=== PATIENT | female | born 2005 | race Two or more races ===

== ENCOUNTER 2024-04-19 11:02 | Inpatient (IN) | payer OTHER, MEDICAID ==
[~2024-04-19] VITALS: Ht 165.1 cm; Wt 79.9 kg
[2024-04-19 11:42] VITALS: PULSE 81; RESP 13; O2SAT 99
--- NOTE | 2024-04-19 11:47 | ED.PDOC ---
History of Present Illness HPI Comments 18F presents to the Er w/ no prior Hx associated to the c/c of a dizziness. Pt reports on feeling lightheadedness for 5 months, as well as left arm and left leg which drag as well as slurred speech for 5 months as well. Pt states that the pain came on suddenly, as well as having a syncopal episode in the bath yesterday. Pt complains of upper back pain due from the fall as well as recurring falls and being off balance. Social Hx of Marijuana use, but denies tobacco and alcohol use. Family Hx of MS and Brain Tumor. Denies chills. fever, N/V/D, SOB, CP or other associated symptom's, modifiers, or recent injuries or sick contact at this time. Chief Complaint: Dizziness Time Seen by MD: 11:30 Primary Care Provider: ANNA Reviewed Notes: Nurses Notes, Medications, Allergies Allergies: Coded Allergies: NO KNOWN ALLERGIES (Unverified , 04/19/24) Information Source: Patient Mode of Arrival: Wheelchair Severity: Moderate Timing: Months Duration: Since onset Prehospital treatment: None Past Medical History PAST MEDICAL HISTORY: Denies Surgical History: Denies all surgeries EXCAVATOR OPERATOR History: No Pertinent EXCAVATOR OPERATOR History Family History Family History: Reviewed,noncontributory to illness Family History (Other): Family Hx of MS and Brain Tumor Social History Smoker: Non-Smoker Alcohol: Denies ETOH Use Drugs: Marijuana Lives In: Home Constitutional: denies: chills, diaphoresis, fatigue, fever, malaise, sweats, weakness, others EENTM: denies: blurred vision, double vision, ear bleeding, ear discharge, ear drainage, ear pain, ear ringing, eye pain, eye redness, hearing loss, mouth pain, mouth swelling, nasal discharge, nose bleeding, nose congestion, nose pain, photophobia, tearing, throat pain, throat swelling, voice changes, others Respiratory: denies: cough, hemoptysis, orthopnea, SOB at rest, shortness of breath, SOB with excertion, stridor, wheezing, others Cardiovascular: denies: chest pain, dizzy spells, diaphoresis, Dyspnea on exertion, edema, irregular heart beat, left arm pain, lightheadedness, palpitations, PND, syncope, others Gastrointestinal: denies: abdomen distended, abdominal pain, blood streaked bowels, constipated, diarrhea, dysphagia, difficulty swallowing, hematemesis, melena, nausea, poor appetite, poor fluid intake, rectal bleeding, rectal pain, vomiting, others Genitourinary: denies: abnormal vagina bleeding, burning, dyspareunia, dysuria, flank pain, frequency, hematuria, incontinence, pain, , vagina discharge, urgency, others Neurological: reports: dizziness, left sided weakness, speech problems; denies: fainting, headache, left sided numbness, numbness, paresthesia, pre-existing deficit, right sided numbness, right sided weakness, seizure, tingling, tremors, weakness, others Musculoskeletal: denies: back pain, gout, joint pain, joint swelling, muscle pain, muscle stiffness, neck pain, others Integumetry: denies: bruises, change in color, change in hair/nails, dryness, laceration, lesions, lumps, rash, wounds, others Allergic/Immunocompromised: denies: Difficulty Healing, Frequent Infections, Hives, Itching, others Hematologic/Lymphatic: denies: anemia, blood clots, easy bleeding, easy bruising, swollen glands, others Endocrine: denies: excessive hunger, excessive sweating, excessive thirst, excessive urination, flushing, intolerance to cold, intolerance to heat, unex plained weight gain, unexplained weight loss, others Psychiatric: denies: anxiety, bipolar disorder, depression, hopeless, panic disorder, schizophrenia, sleepless, suicidal, others All Other Systems: Reviewed and Negative Physical Exam Exam Comments Right eye does not track, midline laterally and Speech is Stuttered Right arm is 5/5 and left arm is 4/5 General Appearance: No Apparent Distress, Normal HEENT: Normal ENT Inspection, Pharynx Normal, TMs Normal Neck: Full Range of Motion, Non-Tender, Normal, Normal Inspection Respiratory: Chest Non-Tender, Lungs Clear, No Accessory Muscle Use, No R espiratory Distress, Normal Breath Sounds Cardiovascular: No Edema, No JVD, No Murmur, No Gallop, Normal Peripheral Pulses, Regular Rate/Rhythm Breast Exam: Deferred Gastrointestinal: No Organomegaly, Non Tender, No Pulsatile Mass, Normal Bowel Sounds, Soft Genitalia: Deferred Pelvic: Deferred Rectal: Deferred Extremities: No calf tenderness, Normal capillary refill, Normal inspection, Normal range of motion, Non-tender, No pedal edema Musculoskeletal : Apperance: Normal Neurologic: Alert, dairy quality assurance officer II-XII nml as Tested, No Motor Deficits, Normal Affect, Normal Mood, No Sensory Deficits Cerebellar Function: Normal Reflexes: Normal Skin: Dry, Normal Color, Warm Lymphatic: No Adenopathy Was a procedure done? Was a procedure done?: No Differential Dx Considerations may include: brain mass, cva, intracranial bleed. demyelinating disease X-Ray, Labs, Meds, VS Vital Signs Date Time Temp Pulse Resp B/P (MAP) Pulse Ox O2 Delivery O2 Flow Rate FiO2 04/19/24 12:00 95 04/19/24 12:00 98.4 82 13 118/71 (87) 99 98.4 04/19/24 11:42 81 13 99 Room Air* 0 21 04/19/24 11:27 99 04/19/24 11:15 98.4 103 18 138/81 (100) 98 Lab Test 04/19/24 11:46 Range/Units White Blood Count 10.2 4.4-10.8 10^3/uL Red Blood Count 5.09 4.0-5.20 10^6/uL Hemoglobin 14.5 12.2-16.2 g/dL Hematocrit 42.8 36.0-46.0 % Mean Corpuscular Volume 84.2 80.0-100.0 fL Mean Corpuscular Hemoglobin 28.4 28.0-32.0 pg Mean Corpuscular Hemoglobin Concent 33.7 32.0-36.0 g/dL Red Cell Distribution Width 15.6 H 11.8-14.3 % Platelet Count 401 140-450 10^3/uL Mean Platelet Volume 6.8 L 6.9-10.8 fL Neutrophils (%) (Auto) 70.6 37.0-80.0 % Lymphocytes (%) (Auto) 19.8 10.0-50.0 % Monocytes (%) (Auto) 7.1 0.0-12.0 % Eosinophils (%) (Auto) 1.8 0.0-7.0 % Basophils (%) (Auto) 0.7 0.0-2.0 % Neutrophils # (Auto) 7.2 1.6-8.6 10 ^3/uL Lymphocytes # (Auto) 2.0 0.4-5.4 10 ^3/uL Monocytes # (Auto) 0.7 0-1.3 10 ^3/uL Eosinophils # (Auto) 0.2 0-0.8 10 ^3/uL Basophils # (Auto) 0.1 0-0.2 10 ^3/uL Nucleated Red Blood Cells 0.0 % Sodium Level 140 136-145 mmol/L Potassium Level 3.7 3.5-5.1 mmol/L Chloride Level 107 98-107 mmol/L Carbon Dioxide Level 23 20-31 mmol/L Anion Gap 10 5-15 Blood Urea Nitrogen 8 L 9-23 mg/dL Creatinine 0.64 0.550-1.02 mg/dL Glomerular Filtration Rate Calc 130 >90 mL/min BUN/Creatinine Ratio 12.5 10.0-20.0 Serum Glucose 104 74-106 mg/dL Calcium Level 10.1 8.7-10.4 mg/dL Total Bilirubin 0.5 0.2-1.0 mg/dL Aspartate Amino Transferase (AST) < 8 L 13-40 U/L Alanine Aminotransferase (ALT) 12 7-40 U/L Alkaline Phosphatase 80 46-116 U/L Total Protein 7.4 5.7-8.2 g/dL Albumin 4.7 3.2-4.8 g/dL Beta HCG, Quantitative 1.5 1.5-4.2 mIU/mL Time of 1ST Reevaluation: 12:00 Reevaluation 1ST: Unchanged Patient Education/Counseling: Diagnosis, Treatment, Prognosis Family Education/Counseling: Diagnosis, Treatment, Prognosis Additional Information - The following tests were ordered, and results were reviewed by me: Labs, Urine, EKG, CBC, CMC - Additional information was gathered from interviewing the following independent Historian: Family - I reviewed and agreed with the following test results read by other provider: (X-ray, CT, US) - I discussed treatments and results with medical personnel and: (consultants, family) Departure 1 Departure Time of Disposition: 13:55 Impression: Primary Impression: Left-sided weakness Additional Impressions: Slurred speech Demyelinating changes in brain Disposition: ADMITTED INPATIENT Admit to: Tele Condition: Serious Critical Care Note Critical Care Time?: Yes (55 min-critical care time only) Critical care comment: due to the likelihood of patients condition suddenly deteriorating, the care requires my highest level of attention, readiness to intervene. my critical care include assessing and reassessing of patient's condition, response to treatments, ordering the appropriate tests, reviewing the results, ordering of treatments, discussing the care with medical personnel and consultants, and formulating a treatment plan, as well a reviewing various medical records. this include at least 50% face-face interaction, and does not include any procedures Stability Stability form required: No I personally scribed for CARLA HEBERT MD ([email or web address]) on 04/19/24 at 11:47. Electronically submitted by Daniel Spencer ([email or web address]). CARLA HEBERT MD Apr 19, 2024 11:47
[2024-04-19 12:01] LABS: Basophils # (auto) 0.1 10 ^3/uL (0-0.2); Basophils % (auto) 0.7 % (0.0-2.0); Eosinophils # (auto) 0.2 10 ^3/uL (0-0.8); Eosinophils % (auto) 1.8 % (0.0-7.0); Hematocrit 42.8 % (36.0-46.0); Hemoglobin 14.5 g/dL (12.2-16.2); Lymphocytes % (auto) 19.8 % (10.0-50.0); Mean Corpuscular Hemoglobin 28.4 pg (28.0-32.0); Mean Corpuscular Hgb Conc. 33.7 g/dL (32.0-36.0); Mean Corpuscular Volume 84.2 fL (80.0-100.0); Monocytes # (auto) 0.7 10 ^3/uL (0-1.3); Monocytes % (auto) 7.1 % (0.0-12.0); Neutrophils # (auto) 7.2 10 ^3/uL (1.6-8.6); Neutrophils % (auto) 70.6 % (37.0-80.0); Platelet Count (auto) 401 10^3/uL (140-450); Red Blood Cells 5.09 10^6/uL (4.0-5.20); Red Cell Distribution Width 15.6 % (11.8-14.3); White Blood Cell 10.2 10^3/uL (4.4-10.8)
[2024-04-19 12:18] LABS: Alanine Aminotransferase 12 U/L (7-40); Albumin 4.7 g/dL (3.2-4.8); Alkaline Phosphatase 80 U/L (46-116); Anion Gap 10 (5-15); BUN/Creatinine Ratio 12.5 (10.0-20.0); Bilirubin, Total 0.5 mg/dL (0.2-1.0); Calcium 10.1 mg/dL (8.7-10.4); Carbon Dioxide 23 mmol/L (20-31); Chloride 107 mmol/L (98-107); Glucose 104 mg/dL (74-106); Potassium 3.7 mmol/L (3.5-5.1); Sodium 140 mmol/L (136-145); Total Protein 7.4 g/dL (5.7-8.2)
[2024-04-19 12:21] LABS: Aspartate Aminotransferase < 8 U/L (13-40); Blood Urea Nitrogen 8 mg/dL (9-23)
--- NOTE | 2024-04-19 13:10 | DVH ---
CLINICAL INFORMATION: 18 years old, Female; lef sided weakness. TECHNIQUE: Axial imaging was obtained through the brain without contrast. Coronal and sagittal refor matted images were obtained, reviewed, and stored. Images were reviewed in brain and bone windows. A ll CT scans at this medical facility are performed using dose modulation techniques as appropriate to a performed exam including the following: Automated exposure control was utilized; adjustment of the MA and/or KV according to patient size; and use of iterative reconstruction technique. CTDIvol = 54.46 mGy DLP = 763.17 mGy-cm COMPARISON: None FINDINGS: No acute intracranial hemorrhage. Multifocal small ovoid lucencies are seen in both cerebr al hemispheres. The ventricles and sulci are within normal limits in size for age. Basal cisterns ar e patent. The calvarium is unremarkable. Paranasal sinuses and mastoid air cells are clear. IMPRESSION: 1. No acute intracranial hemorrhage. 2. Multifocal ovoid lucencies are seen in bilateral cerebral hemispheres, of uncertain etiology. Diff erential considerations would include demyelinating disease or infectious/ inflammatory etiology. Co rrelate with clinical findings. MRI without and with contrast recommended.
--- NOTE | 2024-04-19 13:26 | DVH ---
EXAM: CT CERVICAL WITHOUT CONTRAST INDICATION: left sided weakness EXAM DATE: 04/19/2024 12:39 PM COMPARISON: CT HEAD WITHOUT CONTRAST on DOS: 04/19/24 TECHNIQUE: Multiple axial CT images of the cervical spine were obtained using bone algorithm. Axial a nd coronal reformatting was done. Bone and soft tissue windows were reviewed. Radiation Dose Information: CT Dose: CTDI volume is 19.13 mGy. Dose-length product is 428.11 mGy*cm FINDINGS: 7 [id number] cervical type vertebra. Reversal of the cervical lordosis. No acute cervical spine fracture is identified. The vertebral body heights are intact. No suspicious osseous lesions are kt ntified. Congenital nonfusion of posterior C1 arch. No significant degenerative changes are identified. There is no prevertebral soft tissue swelling. IMPRESSION: No evidence of acute cervical spine fracture or traumatic malalignment. All CT scans at this medical facility are performed using dose modulation techniques as appropriate t o a performed exam including the following: Automated exposure control was utilized; adjustment of th e MA and/or KV according to patient size; and use of iterative reconstruction technique.
--- NOTE | 2024-04-19 13:29 | DVH ---
CT OF THE THORACIC SPINE WITHOUT CONTRAST HISTORY: left sided weakness COMPARISON: None TECHNIQUE: Axial images through the thoracic spine were obtained without contrast. Coronal and sagitt al reformats were obtained. One or more of the following radiation dose reduction techniques were use d for this examination: automated exposure control, adjustment of the mA and/or kV according to patie nt size, use of iterative reconstruction technique. FINDINGS: Rib-bearing thoracic type vertebra. Mild dextroconvex curvature of the lumbar spine. Vertebral body heights are maintained. Motion artifact limits evaluation of the proximal ribs and sternum. No evide nce of acute traumatic fractures or spondylolisthesis of the thoracic spine. Bilateral dependent atelectasis. IMPRESSION: No evidence of acute traumatic fractures or spondylolisthesis.
[2024-04-19 14:05] LABS: Urine Bacteria None Seen /hpf (None Seen)
[2024-04-19 14:26] LABS: Urine Blood 2+ /uL (Negative); Urine Clarity Clear (Clear); Urine Color Light-Yellow (Yellow); Urine Mucus FEW (None Seen); Urine Protein, UAD Negative (Negative); Urine Specific Gravity 1.017 (1.001-1.035); Urine Urobilinogen Normal (Negative); Urine WBC 1 /hpf (0 - 5); Urine pH 6.5 (5.0-9.0)
--- NOTE | 2024-04-19 15:11 | DVHHP2 ---
Admitting Diagnosis: Dizziness History of Present Illness Patient is a 18 Year old Female with complaining of dizziness. Patient reports lightheadedness for 5 months. Patient states that her left arm and left leg drag as well as slurred speech for 5 months. Patient stated that she experiences syncope yesterday, as well as upper back pain from fall. Patient has a history of Marijuana use, but denies EtOH and tobacco. Patient denies chills, fever, N/V/D, SOB, and CP. While in the emergency department the patient was evaluated by the provider, Labs, vital signs, and imagining monitored. Patient will be admitted for further evaluation and treatment. I discussed admission with the patient/family and is in agreement to treatment plan. Allergies: Coded Allergies: NO KNOWN ALLERGIES (Unverified , 04/19/24) Review of Systems Constitutional: denies chills, denies fever, denies malaise Eyes: denies eye pain, denies vision change ENT: denies ear pain, denies headache, denies nasal congestion, denies painful swallowing, denies voice change Cardiovascular: denies chest pain, denies edema, denies orthopnea, denies palpitations, denies paroxysmal nocturnal dyspnea Respiratory: denies cough, denies shortness of breath Gastrointestinal: denies constipation, denies diarrhea, denies nausea, denies vomiting Genitourinary: denies dysuria, denies frequent urination, denies urethral discharge Musculoskeletal: denies back pain, denies joint pain, denies muscle pain Skin: denies bruising, denies itching, denies rash Neurological: denies focal weakness, denies headache, denies sensory changes Psychiatric: denies anxiety, denies depression Endocrine: denies polydipsia, denies polyuria Hematologic/Lymphatic: denies easy bleeding, denies easy bruising, denies enlarged lymph nodes Allergic/Immunologic: denies allergy, denies hives Vital Signs Vital Signs Date Time Temp Pulse Resp B/P (MAP) Pulse Ox O2 Delivery O2 Flow Rate FiO2 04/20/24 16:54 97.9 81 14 110/60 (77) 98 97.9 04/20/24 08:15 Room Air* 0 21 Physical Exam General Appearance: alert, no distress HEENT: EOMI, PERRLA, normal external inspect of ears, no icterus, no nasal drainage Neck: no carotid bruit, no jugular venous distention (JVD), no lymphadenopathy Chest: normal thorax Respiratory: clear to auscultation, normal air movement Cardiovascular: regular rate and rhythm, no diastolic murmur, no jugular venous distention (JVD), no rub, no systolic murmur Abdominal: soft, no hepatomegaly, no mass, no splenomegaly, no tenderness Genitourinary: grossly normal external Musculoskeletal: no joint tenderness, no swelling Extremities: normal pulses, no calf tenderness, no clubbing, no cyanosis, no edema Skin: no bruising, no jaundice, no rash Neurological: alert, No focal deficit Results Labs Test 04/20/24 05:47 04/19/24 12:35 04/19/24 11:46 Range/Units White Blood Count 6.7 # 4.4-10.8 10^3/uL Red Blood Count 4.90 4.0-5.20 10^6/uL Hemoglobin 14.0 12.2-16.2 g/dL Hematocrit 41.6 36.0-46.0 % Mean Corpuscular Volume 84.9 80.0-100.0 fL Mean Corpuscular Hemoglobin 28.6 28.0-32.0 pg Mean Corpuscular Hemoglobin Concent 33.7 32.0-36.0 g/dL Red Cell Distribution Width 15.8 H 11.8-14.3 % Platelet Count 345 140-450 10^3/uL Mean Platelet Volume 6.8 L 6.9-10.8 fL Neutrophils (%) (Auto) 61.7 37.0-80.0 % Lymphocytes (%) (Auto) 24.4 10.0-50.0 % Monocytes (%) (Auto) 8.1 0.0-12.0 % Eosinophils (%) (Auto) 5.1 0.0-7.0 % Basophils (%) (Auto) 0.7 0.0-2.0 % Neutrophils # (Auto) 4.1 1.6-8.6 10 ^3/uL Lymphocytes # (Auto) 1.6 0.4-5.4 10 ^3/uL Monocytes # (Auto) 0.5 0-1.3 10 ^3/uL Eosinophils # (Auto) 0.3 0-0.8 10 ^3/uL Basophils # (Auto) 0 0-0.2 10 ^3/uL Nucleated Red Blood Cells 0.0 % Erythrocyte Sedimentation Rate 7 0-20 mm/hr Sodium Level 140 136-145 mmol/L Potassium Level 4.1 3.5-5.1 mmol/L Chloride Level 108 H 98-107 mmol/L Carbon Dioxide Level 23 20-31 mmol/L Anion Gap 9 5-15 Blood Urea Nitrogen 9 9-23 mg/dL Creatinine 0.61 0.550-1.02 mg/dL Glomerular Filtration Rate Calc 132 >90 mL/min BUN/Creatinine Ratio 14.8 10.0-20.0 Serum Glucose 100 74-106 mg/dL Hemoglobin A1c 5.4 <5.7 % A1C Calcium Level 9.8 8.7-10.4 mg/dL Total Bilirubin 0.5 0.2-1.0 mg/dL Aspartate Amino Transferase (AST) < 8 L 13-40 U/L Alanine Aminotransferase (ALT) 10 7-40 U/L Alkaline Phosphatase 74 46-116 U/L Total Protein 6.8 5.7-8.2 g/dL Albumin 4.2 3.2-4.8 g/dL Thyroid Stimulating Hormone (TSH) 1.20 0.55-4.78 uIU/mL Urine Color Light-yellow Yellow Urine Clarity Clear Clear Urine pH 6.5 5.0-9.0 Urine Specific [place] 1.017 1.001-1.035 Urine Protein Negative Negative Urine Ketones Negative Negative Urine Blood 2+ H Negative /uL Urine Nitrite Negative Negative Urine Bilirubin Negative Negative Urine Urobilinogen Normal Negative mg/dL Urine Leukocyte Esterase Negative Negative /uL Urine RBC <1 0 - 4 /hpf Urine WBC 1 0 - 5 /hpf Urine Squamous Epithelial Cells Few <5 /hpf Urine Bacteria None seen None Seen /hpf Urine Mucus Few None Seen Urine Glucose Normal Normal mg/dL Beta HCG, Quantitative 1.5 1.5-4.2 mIU/mL Admitting Diagnosis: 1. Recurrent Falls Medication, monitoring 2. demyelination in brain Neurology consult, Spinal tap, MRI C/T/L Spine 3. Left Sided-weakness Medication, Monitoring 4. Obesity Diet Education Plan discussed with: Patient, Other LIDAMEON Erin RIVERA Apr 19, 2024 15:11
[2024-04-19] MEDS ORDERED: ONDANSETRON HCL 4 MG/2 ML VIAL IV PRN (15:15)
[2024-04-19] MEDS: SODIUM CHLORIDE 0.9% 1,000 ML IV SCH (16:00)
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
[2024-04-19 17:00] VITALS: BP 123/63; PULSE 76; RESP 18; TEMP 97.9; O2SAT 96
[2024-04-19 18:25] VITALS: O2SAT 97
[2024-04-19 21:00] VITALS: BP 122/69; PULSE 77; RESP 18; TEMP 97.9; O2SAT 97
[2024-04-20 01:00] VITALS: BP 120/69; PULSE 61; RESP 18; TEMP 98.8; O2SAT 97
[2024-04-20 05:00] VITALS: BP 107/60; PULSE 75; RESP 18; TEMP 97.7; O2SAT 94
[2024-04-20 06:07] LABS: Basophils # (auto) 0 10 ^3/uL (0-0.2); Basophils % (auto) 0.7 % (0.0-2.0); Eosinophils # (auto) 0.3 10 ^3/uL (0-0.8); Eosinophils % (auto) 5.1 % (0.0-7.0); Hematocrit 41.6 % (36.0-46.0); Lymphocytes # (auto) 1.6 10 ^3/uL (0.4-5.4); Lymphocytes % (auto) 24.4 % (10.0-50.0); Mean Corpuscular Hemoglobin 28.6 pg (28.0-32.0); Mean Corpuscular Hgb Conc. 33.7 g/dL (32.0-36.0); Mean Corpuscular Volume 84.9 fL (80.0-100.0); Monocytes # (auto) 0.5 10 ^3/uL (0-1.3); Monocytes % (auto) 8.1 % (0.0-12.0); Neutrophils # (auto) 4.1 10 ^3/uL (1.6-8.6); Neutrophils % (auto) 61.7 % (37.0-80.0); Platelet Count (auto) 345 10^3/uL (140-450); Red Cell Distribution Width 15.8 % (11.8-14.3); White Blood Cell 6.7 10^3/uL (4.4-10.8)
[2024-04-20 06:28] LABS: Alanine Aminotransferase 10 U/L (7-40); Albumin 4.2 g/dL (3.2-4.8); Alkaline Phosphatase 74 U/L (46-116); Anion Gap 9 (5-15); Aspartate Aminotransferase < 8 U/L (13-40); BUN/Creatinine Ratio 14.8 (10.0-20.0); Blood Urea Nitrogen 9 mg/dL (9-23); Calcium 9.8 mg/dL (8.7-10.4); Carbon Dioxide 23 mmol/L (20-31); Chloride 108 mmol/L (98-107); Glucose 100 mg/dL (74-106); Potassium 4.1 mmol/L (3.5-5.1); Sodium 140 mmol/L (136-145)
[2024-04-20 06:29] LABS: Bilirubin, Total 0.5 mg/dL (0.2-1.0); Total Protein 6.8 g/dL (5.7-8.2)
[2024-04-20 08:46] VITALS: BP 105/61; PULSE 76; RESP 16; TEMP 97.7; O2SAT 97
--- NOTE | 2024-04-20 09:16 | DVHPN2 ---
Progress Note - Dictate Date Seen: Apr 20, 2024 Medical Necessity Reason Pt with a Central, PICC or Fol: No vital signs Vital Sign Date Time Temp Pulse Resp B/P (MAP) Pulse Ox O2 Delivery O2 Flow Rate FiO2 04/20/24 08:46 97.7 76 16 105/61 (76) 97 97.7 04/20/24 08:15 Room Air* 0 21 Total Intake and Output 04/19/24 04/19/24 04/20/24 15:00 23:00 07:00 Intake Total 120 ml 500 ml Output Total 0 ml 350 ml Balance 120 ml 150 ml medications Current Medications Medications Dose Ordered Sig/Dandre Route Start Time Stop Time Status Last Admin Dose Admin Sodium Chloride 1,000 ml @ 60 mls/hr [id number] IV 04/19/24 15:15 04/19/24 16:00 60 MLS/HR Acetaminophen/ Hydrocodone Bitart 1 tab Q4HP PRN PO 04/19/24 15:15 Ondansetron HCl 4 mg Q4HP PRN IV 04/19/24 15:15 Docusate Sodium 100 mg BIDPRN PRN PO 04/19/24 15:15 Acetaminophen 650 mg Q6HP PRN PO 04/19/24 15:15 objective General Appearance: alert, no distress HEENT: EOMI, PERRLA, normal external inspect of ears, no icterus, no nasal drainage Neck: no carotid bruit, no jugular venous distention (JVD), no lymphadenopathy Chest: normal thorax Respiratory: clear to auscultation, normal air movement Cardiovascular: regular rate and rhythm, no diastolic murmur, no jugular venous distention (JVD), no rub, no systolic murmur Abdominal: soft, no hepatomegaly, no mass, no splenomegaly, no tenderness Genitourinary: grossly normal external Musculoskeletal: no joint tenderness, no swelling Extremities: normal pulses, no calf tenderness, no clubbing, no cyanosis, no edema Skin: no bruising, no jaundice, no rash Neurological: alert, No focal deficit laboratory and microbiology Laboratory Tests 04/20/24 05:47 Test 04/20/24 05:47 Range/Units Serum Glucose 100 74-106 mg/dL Problem List 1. Recurrent Falls Medication, monitoring 2. demyelination in brain Neurology consult, Spinal tap, MRI C/T/L Spine 3. Left Sided-weakness Medication, Monitoring 4. Obesity Diet Education Assessment/Plan Subjective: Patient is awake and alert. Objective: I spoke with the patient and her significant other at the bedside. Patient was admitted for repeated falls. Patient has a history of familial MS on both her mothers and fathers side. CT imaging of the brain shows possible demyelination. Plan: Obtain urine drug screen, MRI with contrast of the brain, MRI of C-spine, T- spine, and L-spine with and without contrast. Radiologist consult for spinal tap. Re-consult neurology after spinal tap to determine possible medication initiation. Plan discussed with: Patient, Other DAMEON JEFFERSON NP Apr 20, 2024 09:16
[2024-04-20 10:23] LABS: Erythrocyte Sedimentation Rate 7 mm/hr (0-20)
--- NOTE | 2024-04-20 13:56 | DVH ---
MRI LUMBAR SPINE WO W CONTRST INDICATION: r/o ms EXAM DATE: 04/20/2024 11:51 AM COMPARISON: None Technique:: Using a 1.5 Elizabeth scanner, multisequence multiplanar imaging of the lumbar spine was obta ined with and without contrast. FINDINGS: 6 laq-ftl-rbeuhvw lumbar-type vertebrae . For the purpose of the study, the 1st jmr-blv-bkohfgy lumba r-type vertebra will be considered L1 with the last orx-vqe-russloe lumbar-type vertebra considered a t lumbarized S1. Mild straightening of the lumbar lordosis. Vertebral body heights are maintained. No worrisome bone marrow signal. No abnormal areas of enhancement on the postcontrast images. The conus terminates at the level of L1-L2 with no abnormal cord signal. L1-L2: No significant spinal canal or neural foramina stenosis. L2-L3: No significant spinal canal or neural foramina stenosis. L3-L4: No significant spinal canal or neural foramina stenosis. L4-L5: Mild prominence of the annular ligament without significant spinal canal or neural foramina st enosis. L5-S1: Posterior disc bulge without significant spinal canal or neural foramina stenosis. The paraspinal muscles unremarkable. IMPRESSION: No significant spinal canal or neural foramina stenosis.
--- NOTE | 2024-04-20 14:12 | DVH ---
EXAM: MRI BRAIN HEAD WO W CONTRAST CLINICAL HISTORY: R/O MS COMPARISON: CT HEAD WITHOUT CONTRAST on DOS: 04/19/24 TECHNIQUE: Multiplanar, multisequence magnetic resonance imaging of the brain was performed without intravenous contrast. FINDINGS: Artifact from possible dental hardware limits evaluation of the frontal CT of the brain with nondiagn ostic blood sensitive sequence and diffusion weighted imaging. There is normal brain volume and formation of the visualized brain. There are innumerable /extensive periventricular, deep and subcortical white matter supratentorial T2 /FLAIR hyperintense foci with involvement of the basal ganglia, thalamus and corpus callosum, some of which are in perivenular distribution. Additional foci are noted involving the brainstem and cerebel lum. There are no acute hemorrhages in the visualized T1 and T2 images. No masses, mass effect, midline sh ift, or herniation of the visualized brain parenchyma. No intra-axial or extra-axial fluid collection s. No evidence of hydrocephalus. The basal cisterns are patent. Vascular flow voids are maintained. The pituitary gland, sella parasellar regions are unremarkable. The cerebellar tonsils are normal pos ition. Limited evaluation of the orbits and globes due to artifact. Limited evaluation of the paranasal sinu ses. The bilateral mastoids are clear. No worrisome lesions of the visualized calvarium. On the postcontrast images, a few T2/FLAIR hyperintense foci demonstrates complete enhancement with m ultiple lesions demonstrating peripheral enhancement most of which are incomplete. IMPRESSION: Study is significantly limited by artifact from possible dental hardware. There are innumerable supratentorial, infratentorial and brainstem T2/FLAIR hyperintense foci with fe w demonstrating complete enhancement and multiple demonstrating incomplete peripheral enhancement sug gestive of active demyelinating process. Recommend clinical correlation.
--- NOTE | 2024-04-20 14:22 | DVH ---
Procedure: MRI THORACIC SPINE WITHOUT Study Date and Requested Time: 04/20/2024 11:30 AM History: R/O MS Comparison: CT THORACIC SPINE WO CONTRAS on DOS: 04/19/24 Technique: Multiple sequential thoracic spine available for evaluation. Findings: 12 rib-bearing thoracic type vertebra. Mild straightening of the thoracic kyphosis. Vertebral body h eights are maintained. No worrisome bone marrow signal. There is T2 hyperintense cord signal at the l evel of T1 involving the central and posterior cord . There is also abnormal left-sided cord signal at the level of T2-T3 extending to the level of the upp er vertebral body of T3. There are also multiple levels of short segmental abnormal cord signal exte nding from T4 to the conus, most prominent at the level of T8 and T10 with near-complete involvement of the cord at T8 and T10. No significant spinal canal or neural foramina stenosis. The paraspinal muscles unremarkable. Impression: Extensive short segmental T2/FLAIR hyperintense foci involving the thoracic cord most consistent with demyelinating process. No significant spinal canal or neural foramina stenosis.
--- NOTE | 2024-04-20 14:38 | DVH ---
CLINICAL INFORMATION: 18 years old, Female; rule out multiple sclerosis. TECHNIQUE: Multisequence multiplanar MRI images of the cervical spine were obtained prior to and afte r the uneventful administration of 20 mL of radha scan contrast. COMPARISON: CT CERVICAL WITHOUT CONTRAST on DOS: 04/19/24, CT HEAD WITHOUT CONTRAST on DOS: 04/19/24 FINDINGS: Bones: Straightening of the normal cervical lordosis. No significant spondylolisthesis. Vertebral bod y heights are maintained. Posterior elements are intact. No acute fracture. No focal suspicious marro w signal abnormality. Spinal cord: Multiple T2/FLAIR hyperintense lesions are seen in the spinal cord, including a lesion i n the central aspect of the spinal cord measuring up to 0.9 cm at the C2-C3 level, a lesion measuring up to 2 cm in greatest dimension at the C4 level, a 0.4 cm lesion in the right side of the spinal co rd at the C5 level, a 0.3 cm lesion in the right posterior aspect of the spinal cord at the C6 level, and a 0.4 cm lesion in the anterior aspect of the spinal cord at the C7 level. No abnormal epidural or leptomeningeal enhancement visualized, although very limited postcontrast images. Paraspinal soft tissues: Paraspinal and prevertebral soft tissues are unremarkable. Other: No abnormal postcontrast enhancement visualized given the limitations of the examination. Brittany fact limits evaluation on multiple sequences, including postcontrast images. Cervical disc levels: C2-C3: No significant disc/facet abnormality. No significant spinal canal or neural foraminal stenosi s. C3-C4: There is a mild moderate degree of congenital spinal canal narrowing. No significant neural fo raminal stenosis. C4-C5: Moderate congenital spinal canal stenosis. No significant neural foraminal stenosis. C5-C6: Zhaa-on-kokiotit congenital spinal canal stenosis. No significant neural foraminal stenosis. C6-C7: Mild congenital spinal canal narrowing. No significant neural foraminal stenosis. C7-T1: No significant disc/facet abnormality. No significant spinal canal or neural foraminal stenos is. IMPRESSION: 1. Multilevel T2/FLAIR hyperintense lesions in the spinal cord. Suspicious for demyelinating disease . 2. Congenital spinal canal stenosis as detailed above. 3. Limited postcontrast images due to motion artifact.
[2024-04-20 16:54] VITALS: BP 110/60; PULSE 81; RESP 14; TEMP 97.9; O2SAT 98
[2024-04-20 21:00] VITALS: BP 120/74; PULSE 77; RESP 18; TEMP 97.5; O2SAT 100
[2024-04-20] MEDS: ACETAMINOPHEN 325 MG TAB PO PRN (21:52)
[2024-04-21] VITALS (7 sets, daily range): BP systolic 103–137; BP diastolic 58–85; PULSE 69–94; RESP 16–18; TEMP 97.2–98; O2SAT 94–99
[2024-04-21 06:53] LABS: Amphetamine Screen, Urine Neg (NEGATIVE); Cannabinoid Screen, Urine Pos (NEGATIVE); Opiate Scree,Urine Neg (NEGATIVE)
[2024-04-21 06:56] LABS: Barbiturate Scree,Urine Neg (NEGATIVE); Benzodiazephine Screen, Urine Neg (NEGATIVE); Phencyclidine Screen, Urine Neg (NEGATIVE)
[2024-04-21 07:53] LABS: Cocaine Screen, Urine Neg (NEGATIVE)
[2024-04-21] MEDS: DOCUSATE SOD 100 MG CAP PO PRN (10:42)
[2024-04-21 10:43] LABS: INR 1.01 (0.9-1.15); Partial Thromboplastin Time 22.7 SEC (24.5-34.5); Prothrombin Time 10.7 sec (9.3-11.8)
--- NOTE | 2024-04-21 11:20 | DVHPN2 ---
Progress Note - Dictate Date Seen: Apr 21, 2024 Medical Necessity Reason Pt with a Central, PICC or Fol: No vital signs Vital Sign Date Time Temp Pulse Resp B/P (MAP) Pulse Ox O2 Delivery O2 Flow Rate FiO2 04/21/24 10:47 74 122/71 (88) 04/21/24 09:00 97.9 17 97 97.9 04/20/24 20:00 Room Air* 0 21 Total Intake and Output 04/20/24 04/20/24 04/21/24 15:00 23:00 07:00 Intake Total 120 ml 1200 ml 700 ml Output Total 0 ml Balance 120 ml 1200 ml 700 ml medications Current Medications Medications Dose Ordered Sig/Dandre Route Start Time Stop Time Status Last Admin Dose Admin Sodium Chloride 1,000 ml @ 60 mls/hr [id number] IV 04/19/24 15:15 04/20/24 07:55 60 MLS/HR Acetaminophen/ Hydrocodone Bitart 1 tab Q4HP PRN PO 04/19/24 15:15 Ondansetron HCl 4 mg Q4HP PRN IV 04/19/24 15:15 Docusate Sodium 100 mg BIDPRN PRN PO 04/19/24 15:15 04/21/24 10:42 100 MG Acetaminophen 650 mg Q6HP PRN PO 04/19/24 15:15 04/20/24 21:52 650 MG objective General Appearance: alert, no distress HEENT: EOMI, PERRLA, normal external inspect of ears, no icterus, no nasal drainage Neck: no carotid bruit, no jugular venous distention (JVD), no lymphadenopathy Chest: normal thorax Respiratory: clear to auscultation, normal air movement Cardiovascular: regular rate and rhythm, no diastolic murmur, no jugular venous distention (JVD), no rub, no systolic murmur Abdominal: soft, no hepatomegaly, no mass, no splenomegaly, no tenderness Genitourinary: grossly normal external Musculoskeletal: no joint tenderness, no swelling Extremities: normal pulses, no calf tenderness, no clubbing, no cyanosis, no edema Skin: no bruising, no jaundice, no rash Neurological: alert, No focal deficit laboratory and microbiology Laboratory Tests 04/20/24 05:47 Test 04/20/24 05:47 Range/Units Serum Glucose 100 74-106 mg/dL Problem List 1. Recurrent Falls Medication, monitoring 2. demyelination in brain Neurology consult, Spinal tap, MRI C/T/L Spine 3. Left Sided-weakness Medication, Monitoring 4. Obesity Diet Education Assessment/Plan Subjective Patient is awake and alert. Objective Patient had an MRI of the brain and spine yesterday. Patient partially completed T-spine. Imaging does show demyelinating disease pending spinal tap today. Patient was admitted for recurrent falls. Patient has a strong family history of multiple sclerosis. Plan Continue current treatment treatment for MS. Pending spinal tap results. So far no signs of infection. CBC shows no leukocytosis. Patient has been afebrile. Will need to reconsult [facility]. Plan discussed with: Patient, Other DAMEON JEFFERSON NP Apr 21, 2024 11:20
--- NOTE | 2024-04-21 12:28 | ECG ---
[facility] Test Date: 2024-04-19 Test Time: 11:27:45 Pat Name: OTTO MARTINEZ Department: ER Room: [address] [place] [address] 2 Gender: F City Manager: NANO : 2005 Requested By: CARLA HEBERT Order Number: [id number] Reading MD: Boyd Coronel Measurements Intervals [place] Rate: 99 P: 26 [place]: 118 QRS: 101 QRSD: 92 T: -40 QT: 327 QTc: 420 Interpretive Statements Sinus tachycardia Atrial premature complex Borderline right axis deviation Abnormal T, consider ischemia, diffuse leads Electronically Signed On 04-23-2024 16:09:22 PST by Boyd Coronel Please click the below link to view image of tracing.
[2024-04-22] VITALS (7 sets, daily range): BP systolic 111–137; BP diastolic 65–87; PULSE 80–96; RESP 16–20; TEMP 97–97.9; O2SAT 92–99
[2024-04-22] MEDS: LIDOCAINE 2%HCL (LOCAL ANESTH.) INJ 10ml MDV ONE (07:10)
--- NOTE | 2024-04-22 09:35 | DVH ---
CT LS SPINE WO CONTRAST, HISTORY: CT GUIDED LUMBAR PUNCTURE COMPARISON: MRI LUMBAR SPINE WO W CONTRST on DOS: 04/20/24, CT THORACIC SPINE WO CONTRAS on DOS: 04/19, CT HEAD WITHOUT CONTRAST on DOS: 04/19/24 PROCEDURE: After obtaining written informed consent, the patient was placed left lateral decubitus on the interventional table. The patient's identity and the procedure were confirmed by the timeout pro cess. Under CT, an off midline approach to the L3-4 interlaminar space was selected and the overlying skin anesthetized with several mL of 1% lidocaine. A 21G spinal needle was advanced under CT into the thec al sac with return of clear CSF. 12.5 mL of CSF was collected in four aliquots and sent to the clinic al laboratory for testing per the referring physician's specifications. The needle was removed and a bandage placed. The patient tolerated the procedure well without immediate complication. DLP [id number] FINDINGS: Stored CT images show the needle positioned with its tip in the spinal canal at the level o f L3-4. IMPRESSION: Lumbar puncture for CSF analysis, as detailed above.
[2024-04-22 10:49] LABS: Protein, CSF 73.6 mg/dL (15-45)
[2024-04-22 11:45] LABS: CSF White Blood Cells 0 CUMM (0-5); Description,CSF CLEAR
--- NOTE | 2024-04-22 13:27 | DVHPN2 ---
Progress Note - Dictate Date Seen: Apr 22, 2024 Medical Necessity Reason Pt with a Central, PICC or Fol: No vital signs Vital Sign Date Time Temp Pulse Resp B/P (MAP) Pulse Ox O2 Delivery O2 Flow Rate FiO2 04/22/24 12:51 97.3 96 16 133/75 (94) 92 97.3 04/22/24 08:30 Room Air* 0 21 Total Intake and Output 04/21/24 04/21/24 04/22/24 15:00 23:00 07:00 Intake Total 1525 ml 600 ml Output Total 500 ml Balance 1525 ml 100 ml medications Current Medications Medications Dose Ordered Sig/Dandre Route Start Time Stop Time Status Last Admin Dose Admin Sodium Chloride 1,000 ml @ 60 mls/hr [id number] IV 04/19/24 15:15 04/22/24 09:55 60 MLS/HR Acetaminophen/ Hydrocodone Bitart 1 tab Q4HP PRN PO 04/19/24 15:15 Ondansetron HCl 4 mg Q4HP PRN IV 04/19/24 15:15 Docusate Sodium 100 mg BIDPRN PRN PO 04/19/24 15:15 04/21/24 10:42 100 MG Acetaminophen 650 mg Q6HP PRN PO 04/19/24 15:15 04/22/24 11:28 650 MG Methylprednisolone Sodium Succinate 1000 mg/Sodium Chloride 250 ml @ 300 mls/hr DAILY IV 04/22/24 13:15 04/27/24 13:14 UNV Cholecalciferol 1,000 unit DAILY PO 04/23/24 10:00 UNV Calcium Carbonate 500 mg BID PO 04/22/24 22:00 UNV objective General Appearance: alert, no distress HEENT: EOMI, PERRLA, normal external inspect of ears, no icterus, no nasal drainage Neck: no carotid bruit, no jugular venous distention (JVD), no lymphadenopathy Chest: normal thorax Respiratory: clear to auscultation, normal air movement Cardiovascular: regular rate and rhythm, no diastolic murmur, no jugular venous distention (JVD), no rub, no systolic murmur Abdominal: soft, no hepatomegaly, no mass, no splenomegaly, no tenderness Genitourinary: grossly normal external Musculoskeletal: no joint tenderness, no swelling Extremities: normal pulses, no calf tenderness, no clubbing, no cyanosis, no edema Skin: no bruising, no jaundice, no rash Neurological: alert, No focal deficit laboratory and microbiology Laboratory Tests 04/20/24 05:47 Test 04/20/24 05:47 Range/Units Serum Glucose 100 74-106 mg/dL Problem List 1. Recurrent Falls Medication, monitoring 2. demyelination in brain Neurology consult, Spinal tap, MRI C/T/L Spine 3. Left Sided-weakness Medication, Monitoring 4. Obesity Diet Education Assessment/Plan Subjective Patient is awake and alert. Objective Patient had her MRI of the brain, C-spine, T-spine, and L-spine all showing some demyelinating disease. Patient is status post spinal tap done by radiology today. Fluid was sent for pathology. Patient does have negative WBC and elevated protein noted in spinal fluid, most likely MS. Neurology has been consulted. Patient has been started on IV Solu-Medrol, vitamin D, calcium, and Protonix per teleneuro recommendations. Plan Continue current treatment. Patient was started on 1000 mg IV Solu-Medrol daily for 5 days as recommended by telemetry neuro. Dr. Mcclellan consulted to continue neurowork-up. Plan discussed with: Patient, Other DAMEON JEFFERSON NP Apr 22, 2024 13:27
[2024-04-22] MEDS: methylPREDNISolone SOD SUCC 1,000 MG in SODIUM CHL 0.9% 250 ML IV SCH (16:49)
[2024-04-22] MEDS: PANTOPRAZOLE 40 MG TAB PO SCH (16:49)
--- NOTE | 2024-04-22 19:21 | DVH ---
INDICATION: RETENTION TECHNIQUE: Multiple real-time sonographic images of the kidneys and bladder were obtained. COMPARISON: None FINDINGS: RIGHT kidney measures 9.5 cm in length. No hydronephrosis. LEFT kidney measures 10.1 cm in length. No hydronephrosis. Urinary bladder is collapsed around Jaime catheter. IMPRESSION: 1. Unremarkable examination.
--- NOTE | 2024-04-22 22:45 | DVHINCON2 ---
Date of service: Apr 22, 2024 Referring Physician Eileen Reason for Consultation Left-sided weakness, rule out MS History of Present Illness Ms. Yusuf is a 18 years old right-handed female with a history of a overweight, crossed eye/strabismus, the patient was admitted to the [facility] on 04/19/2024 with a chief company of dizziness. At this time, she is alert and fully oriented, she provided the following history Since 09/2023, the patient has progressive intermittent daily dizziness/lightheadedness/imbalance, she has falls, and recently she falls twice daily Since 09/2023, the patient has slowly progressive slurred speech Since 04/21/2024, the patient has difficulty urinating She denies vision difficulty She saw her family doctor, dehydration was suspect CSF, 04/22/2024: WBC: 0, protein: 37.6, glucose: 65 Urinalysis, 04/02/2024: Unremarkable UDS, 04/21/2024: Cannabinoids HIV one and two antibody, 04/22/2024: Negative CBC, 04/20/2024: Unremarkable ESR, 04/20/2024: 7 CMP, 04/20/2024: Unremarkable TSH, 04/19/2024: 1.2 MRI [facility] brain, 04/19/2024: There are innumerable supratentorial, infratentorial and brainstem T2/FLAIR hyperintense foci with few demonstrating complete enhancement and multiple demonstrating incomplete peripheral enhancement suggestive of active demyelinating process. Recommend clinical correlation MRI [facility] C-spine, 04/19/2024: 1. Multilevel T2/FLAIR hyperintense lesions in the spinal cord. Suspicious for demyelinating disease. 2. Congenital spinal canal stenosis as detailed above. 3. Limited postcontrast images due to motion artifact MRI T-spine, 04/19/2024: Extensive short segmental T2/FLAIR hyperintense foci involving the thoracic cord most consistent with demyelinating process. No significant spinal canal or neural foramina stenosis MRI L-spine [facility], 04/19/2024: No significant spinal canal or neural foramina stenosis Past Medical History Strabismus, overweight Past Surgical History None Family History: FH: brain tumor G8 MOTHER FH: multiple sclerosis grandmother Family History Both grandmothers have multiple sclerosis Social History She has not tobacco smoke, she denies a history of alcohol or recreational substance abuse Allergies: Coded Allergies: NO KNOWN ALLERGIES (Unverified , 04/19/24) Home Meds No Active Prescriptions or Reported Meds Current Medications Current Medications Medications (Trade) Dose Ordered Sig/Dandre Route PRN Reason Start Time Stop Time Status Last Admin Methylprednisolone Sodium Succinate 1000 mg/Sodium Chloride 250 ml @ 300 mls/hr DAILY IV 04/22/24 13:15 04/27/24 13:14 04/22/24 16:49 Cholecalciferol (Vitamin D3 Tablet) 1,000 unit DAILY PO 04/23/24 10:00 Calcium Carbonate (Tums) 500 mg BID PO 04/22/24 22:00 Pantoprazole Sodium (Protonix Tablet) 40 mg DAILY@0600 PO 04/22/24 13:30 04/22/24 16:49 Review of Systems As above, the other systems are negative Vital Signs Vital Signs Date Time Temp Pulse Resp B/P (MAP) Pulse Ox O2 Delivery O2 Flow Rate FiO2 04/22/24 16:57 97.9 94 17 137/87 (104) 94 97.9 04/22/24 08:30 Room Air* 0 21 Physical Exam GENERAL EXAM: General: the patient is well developed and nourished. No acute distress. HEENT: Normocephalic, neck is supple, no carotid bruits. No mass. RESPIRATORY: Normal respiratory effort with symmetrical lung expansion. Lungs clear to auscultation. CARDIOVASCULAR: Regular rate and rhythm with no murmurs. S1, S2. ABDOMEN: Soft, nontender, normal bowel sound NEUROLOGICAL: MENTAL STATUS: Awake and alert. Oriented to person, place, time and general circumstances. Able to give personal history. SPEECH, LANGUAGE, HIGHER CORTICAL FUNCTION: no aphasia, mild slurred speech dysathria. CRANIAL NERVES: #2: Intact visual francois to confrontation. The optic discs were sharp. #3,4,6: Pupils are equal, round and reactive. EOMs full and conjugate except for right CN weakness. No nystagmus. #5: Facial sensation intact in all three divisions bilaterally. Mandibular strength intact. #7: Facial muscles symmetrical and strength intact. #8: Hearing grossly normal to voice. #9,10: Uvula and soft palate rise in the midline. Swallow and voice are normal. #11: Trapezius and sternomastoid strength intact bilaterally. #12: Tongue midline. No fasciculations or atrophy. SENSATION: Sensation to touch and pinprick is diminished in the right lower extremity below the groin area MOTOR: Normal tone in the upper and lower extremity. Normal muscle bulk. No fasciculations. No abnormal movements or posturing. Muscle strength of the major groups in the right extremities is 5/5. Muscle strength of the major groups in the lower extremities close to 5/5 with left arm and leg drift REFLEXES: Deep tendon reflexes normal and symmetrical. No pathological reflexes. CEREBELLAR/COORDINATION: Finger to nose is normal bilaterally. GAIT/STATION: deferred. Labs/Diagnostic Data Labs Test 04/22/24 17:05 04/22/24 14:40 04/22/24 08:30 04/21/24 09:54 Range/Units HIV (1&2) Antibody Negative Negative CSF Tube Number Tube 3 CSF Appearance Clear CSF WBC 0 0-5 CUMM CSF RBC 53 H 0-5 CUMM CSF Protein (Tube 2) 73.6 H 15-45 mg/dL CSF Mononuclear Cells % CSF Polymorphonuclear Cells % CSF Glucose 65 40-70 mg/dL Prothrombin Time 10.7 9.3-11.8 sec Prothrombin Time INR 1.01 0.9-1.15 Activated Partial Thromboplast Time 22.7 L 24.5-34.5 SEC Test 04/21/24 05:05 04/20/24 05:47 04/19/24 12:35 04/19/24 11:46 Range/Units Urine Opiates Screen Neg NEGATIVE Urine Fentanyl Screen Neg NEGATIVE Urine Barbiturates Screen Neg NEGATIVE Urine Phencyclidine Screen Neg NEGATIVE Urine Amphetamines Screen Neg NEGATIVE Urine Benzodiazepines Screen Neg NEGATIVE Urine Cocaine Screen Neg NEGATIVE Urine Cannabinoids Screen Pos NEGATIVE White Blood Count 6.7 # 4.4-10.8 10^3/uL Red Blood Count 4.90 4.0-5.20 10^6/uL Hemoglobin 14.0 12.2-16.2 g/dL Hematocrit 41.6 36.0-46.0 % Mean Corpuscular Volume 84.9 80.0-100.0 fL Mean Corpuscular Hemoglobin 28.6 28.0-32.0 pg Mean Corpuscular Hemoglobin Concent 33.7 32.0-36.0 g/dL Red Cell Distribution Width 15.8 H 11.8-14.3 % Platelet Count 345 140-450 10^3/uL Mean Platelet Volume 6.8 L 6.9-10.8 fL Neutrophils (%) (Auto) 61.7 37.0-80.0 % Lymphocytes (%) (Auto) 24.4 10.0-50.0 % Monocytes (%) (Auto) 8.1 0.0-12.0 % Eosinophils (%) (Auto) 5.1 0.0-7.0 % Basophils (%) (Auto) 0.7 0.0-2.0 % Neutrophils # (Auto) 4.1 1.6-8.6 10 ^3/uL Lymphocytes # (Auto) 1.6 0.4-5.4 10 ^3/uL Monocytes # (Auto) 0.5 0-1.3 10 ^3/uL Eosinophils # (Auto) 0.3 0-0.8 10 ^3/uL Basophils # (Auto) 0 0-0.2 10 ^3/uL Nucleated Red Blood Cells 0.0 % Erythrocyte Sedimentation Rate 7 0-20 mm/hr Sodium Level 140 136-145 mmol/L Potassium Level 4.1 3.5-5.1 mmol/L Chloride Level 108 H 98-107 mmol/L Carbon Dioxide Level 23 20-31 mmol/L Anion Gap 9 5-15 Blood Urea Nitrogen 9 9-23 mg/dL Creatinine 0.61 0.550-1.02 mg/dL Glomerular Filtration Rate Calc 132 >90 mL/min BUN/Creatinine Ratio 14.8 10.0-20.0 Serum Glucose 100 74-106 mg/dL Hemoglobin A1c 5.4 <5.7 % A1C Calcium Level 9.8 8.7-10.4 mg/dL Total Bilirubin 0.5 0.2-1.0 mg/dL Aspartate Amino Transferase (AST) < 8 L 13-40 U/L Alanine Aminotransferase (ALT) 10 7-40 U/L Alkaline Phosphatase 74 46-116 U/L Total Protein 6.8 5.7-8.2 g/dL Albumin 4.2 3.2-4.8 g/dL Thyroid Stimulating Hormone (TSH) 1.20 0.55-4.78 uIU/mL Urine Color Light-yellow Yellow Urine Clarity Clear Clear Urine pH 6.5 5.0-9.0 Urine Specific [place] 1.017 1.001-1.035 Urine Protein Negative Negative Urine Ketones Negative Negative Urine Blood 2+ H Negative /uL Urine Nitrite Negative Negative Urine Bilirubin Negative Negative Urine Urobilinogen Normal Negative mg/dL Urine Leukocyte Esterase Negative Negative /uL Urine RBC <1 0 - 4 /hpf Urine WBC 1 0 - 5 /hpf Urine Squamous Epithelial Cells Few <5 /hpf Urine Bacteria None seen None Seen /hpf Urine Mucus Few None Seen Urine Glucose Normal Normal mg/dL Beta HCG, Quantitative 1.5 1.5-4.2 mIU/mL Microbiology Date/Time Source Procedure Growth Status 04/22/24 08:30 Cerebral Spinal Fluid Gram Stain - Final Resulted 04/22/24 08:30 Cerebral Spinal Fluid CSF Culture & Gram Stain (Tube 2) M Pending Resulted Assessment Progress slurred speech, dizziness, gait disturbance, left-sided weakness, left lower extremity sensory loss, the patient was likely has multiple sclerosis Plan/Recommendation Monitoring Supportive treatment Chest x-ray Waiting for CSF profile Solu-Medrol 1000 mg IV q.d.x 5 days Consider Copaxone 40 mg subQ 3 times weekly Follow with me on discharge [facility] MS specialist evaluation Progress: Poor This medical document was created using an electronic medical record system with Open[employer] dictation system. Although this document has been carefully reviewed, there may still be some phonetic and typographical errors. These a reas are purely typographical due to imperfections of the software programs, and do not reflect any compromise in the patient's medical care. Plan discussed with: Patient, Other CARMEN RANDOLPH MD Apr 22, 2024 22:45
[2024-04-22] MEDS: CALCIUM CARB 500 MG CHEW TAB PO SCH (23:13)
[2024-04-23] VITALS (8 sets, daily range): BP systolic 100–141; BP diastolic 59–80; PULSE 74–93; RESP 16–18; TEMP 97.4–98.4; O2SAT 96–99
--- NOTE | 2024-04-23 07:14 | DVH ---
CHEST RADIOGRAPH Indication: Infiltrate Technique: Single frontal view of the chest was obtained COMPARISON: None FINDINGS: Lines and Tubes: None Lungs: Right lower lobe airspace disease. Pleura: No effusion. No pneumothorax. Cardiomediastinal contours: Unremarkable Bones: Unremarkable IMPRESSION: Right lower lobe airspace disease.
[2024-04-23 08:07] LABS: Serum Albumin 4.4 g/dL (4.0-5.0)
--- NOTE | 2024-04-23 08:58 | DVHPN2 ---
Progress Note - Dictate Date Seen: Apr 23, 2024 Medical Necessity Reason Pt with a Central, PICC or Fol: No Subjective MsRee Yusuf is a 18 years old right-handed female with a history of a overweight, crossed eye/strabismus, the patient was admitted to the [facility] on 04/19/2024 with a chief company of dizziness I have seen and examined the patient, discussed with her nurse, she was doing fine, but looks depressed, CSF, 04/22/2024: WBC: 0, protein: 37.6, glucose: 65 Urinalysis, 04/02/2024: Unremarkable UDS, 04/21/2024: Cannabinoids HIV one and two antibody, 04/22/2024: Negative CBC, 04/20/2024: Unremarkable ESR, 04/20/2024: 7 CMP, 04/20/2024: Unremarkable TSH, 04/19/2024: 1.2 Chest x-ray, 04/23/2024: Right lower lobe airspace disease [facility] brain, 04/19/2024: There are innumerable supratentorial, infratentorial and brainstem T2/FLAIR hyperintense foci with few demonstrating complete enhancement and multiple demonstrating incomplete peripheral enhancement suggestive of active demyelinating process. Recommend clinical correlation [facility] C-spine, 04/19/2024: 1. Multilevel T2/FLAIR hyperintense lesions in the spinal cord. Suspicious for demyelinating disease. 2. Congenital spinal canal stenosis as detailed above. 3. Limited postcontrast images due to motion artifact MRI T-spine, 04/19/2024: Extensive short segmental T2/FLAIR hyperintense foci involving the thoracic cord most consistent with demyelinating process. No significant spinal canal or neural foramina stenosis MRI L-spine o, 04/19/2024: No significant spinal canal or neural foramina stenosis vital signs Vital Sign Date Time Temp Pulse Resp B/P (MAP) Pulse Ox O2 Delivery O2 Flow Rate FiO2 04/23/24 05:00 98.4 90 18 140/80 (100) 99 98.4 04/22/24 20:30 Room Air* 0 21 Total Intake and Output 04/22/24 04/22/24 04/23/24 15:00 23:00 07:00 Intake Total 800 ml 1440 ml 1375 ml Output Total 1200 ml Balance 800 ml 1440 ml 175 ml medications Current Medications Medications Dose Ordered Sig/Dandre Route Start Time Stop Time Status Last Admin Dose Admin Sodium Chloride 1,000 ml @ 60 mls/hr [id number] IV 04/19/24 15:15 04/22/24 09:55 60 MLS/HR Acetaminophen/ Hydrocodone Bitart 1 tab Q4HP PRN PO 04/19/24 15:15 Ondansetron HCl 4 mg Q4HP PRN IV 04/19/24 15:15 Docusate Sodium 100 mg BIDPRN PRN PO 04/19/24 15:15 04/21/24 10:42 100 MG Acetaminophen 650 mg Q6HP PRN PO 04/19/24 15:15 04/22/24 11:28 650 MG Methylprednisolone Sodium Succinate 1000 mg/Sodium Chloride 250 ml @ 300 mls/hr DAILY IV 04/22/24 13:15 04/27/24 13:14 04/22/24 16:49 300 MLS/HR Cholecalciferol 1,000 unit DAILY PO 04/23/24 10:00 Calcium Carbonate 500 mg BID PO 04/22/24 22:00 04/22/24 23:13 500 MG Pantoprazole Sodium 40 mg DAILY@0600 PO 04/22/24 13:30 04/23/24 05:57 40 MG objective General: the patient is well developed and nourished. No acute distress. MENTAL STATUS: Subjective SPEECH, LANGUAGE, HIGHER CORTICAL FUNCTION: no aphasia, mild slurred speech CRANIAL NERVES: Pupils are equal, round and reactive. EOMs full and conjugate except for right CN weakness. No nystagmus. Facial sensation intact in all three divisions bilaterally. Mandibular strength intact. Facial muscles symmetrical and strength intact. SENSATION: Sensation to touch and pinprick is diminished in the right lower extremity below the groin area MOTOR: Normal tone in the upper and lower extremity. Normal muscle bulk. No fasciculations. No abnormal movements or posturing. Muscle strength of the major groups in the right extremities is 5/5. Muscle strength of the major groups in the lower extremities close to 5/5 with left arm and leg drift REFLEXES: Deep tendon reflexes normal and symmetrical. No pathological reflexes. CEREBELLAR/COORDINATION: Finger to nose is normal bilaterally. GAIT/STATION: deferred laboratory and microbiology Laboratory Tests 04/20/24 05:47 Test 04/20/24 05:47 Range/Units Serum Glucose 100 74-106 mg/dL Problem List Progress slurred speech, dizziness, gait disturbance, left-sided weakness, left lower extremity sensory loss, the patient was likely has multiple sclerosis ? Depression Strabismus Assessment/Plan Monitoring, including evidence of depression Supportive treatment Chest CT Serum angiotensin-converting enzyme CSF angiotensin-converting enzyme Waiting for CSF profile Solu-Medrol 1000 mg IV q.d.x 5 days Consider Copaxone 40 mg subQ 3 times weekly Follow with me on discharge [facility] MS specialist evaluation This medical document was created using an electronic medical record system with [employer] dictation system. Although this document has been carefully reviewed, there may still be some phonetic and typographical errors. These areas are purely typographical due to imperfections of the software programs, and do not reflect any compromise in the patient's medical care Prognosis poor Plan discussed with: Patient, Other Total Time (mins): 35 CARMEN RANDOLPH MD Apr 23, 2024 08:58
[2024-04-23 09:06] LABS: Immunoglobulin G, Serum 923 mg/dL (719-1475)
--- NOTE | 2024-04-23 09:16 | DVHPN2 ---
Progress Note - Dictate Date Seen: Apr 23, 2024 Medical Necessity Reason Pt with a Central, PICC or Fol: No vital signs Vital Sign Date Time Temp Pulse Resp B/P (MAP) Pulse Ox O2 Delivery O2 Flow Rate FiO2 04/23/24 08:54 98.1 92 16 141/72 (95) 97 98.1 04/22/24 20:30 Room Air* 0 21 Total Intake and Output 04/22/24 04/22/24 04/23/24 15:00 23:00 07:00 Intake Total 800 ml 1440 ml 1375 ml Output Total 1200 ml Balance 800 ml 1440 ml 175 ml medications Current Medications Medications Dose Ordered Sig/Dandre Route Start Time Stop Time Status Last Admin Dose Admin Sodium Chloride 1,000 ml @ 60 mls/hr [id number] IV 04/19/24 15:15 04/22/24 09:55 60 MLS/HR Acetaminophen/ Hydrocodone Bitart 1 tab Q4HP PRN PO 04/19/24 15:15 Ondansetron HCl 4 mg Q4HP PRN IV 04/19/24 15:15 Docusate Sodium 100 mg BIDPRN PRN PO 04/19/24 15:15 04/21/24 10:42 100 MG Acetaminophen 650 mg Q6HP PRN PO 04/19/24 15:15 04/22/24 11:28 650 MG Methylprednisolone Sodium Succinate 1000 mg/Sodium Chloride 250 ml @ 300 mls/hr DAILY IV 04/22/24 13:15 04/27/24 13:14 04/22/24 16:49 300 MLS/HR Cholecalciferol 1,000 unit DAILY PO 04/23/24 10:00 Calcium Carbonate 500 mg BID PO 04/22/24 22:00 04/22/24 23:13 500 MG Pantoprazole Sodium 40 mg DAILY@0600 PO 04/22/24 13:30 04/23/24 05:57 40 MG objective General Appearance: alert, no distress HEENT: EOMI, PERRLA, normal external inspect of ears, no icterus, no nasal drainage Neck: no carotid bruit, no jugular venous distention (JVD), no lymphadenopathy Chest: normal thorax Respiratory: clear to auscultation, normal air movement Cardiovascular: regular rate and rhythm, no diastolic murmur, no jugular venous distention (JVD), no rub, no systolic murmur Abdominal: soft, no hepatomegaly, no mass, no splenomegaly, no tenderness Genitourinary: grossly normal external Musculoskeletal: no joint tenderness, no swelling Extremities: normal pulses, no calf tenderness, no clubbing, no cyanosis, no edema Skin: no bruising, no jaundice, no rash Neurological: alert, No focal deficit laboratory and microbiology Laboratory Tests 04/20/24 05:47 Test 04/20/24 05:47 Range/Units Serum Glucose 100 74-106 mg/dL Problem List 1. Recurrent Falls Medication, monitoring 2. demyelination in brain Neurology consult, Spinal tap, MRI C/T/L Spine 3. Left Sided-weakness Medication, Monitoring 4. Obesity Diet Education Assessment/Plan Subjective Patient is awake and alert. Objective: Patient is reportedly been having persistent falls for the past several months. Patient was seen in the emergency room. CT imaging showed possible demyelination process. Patient was admitted for further workup to rule out MS. Patient had an MRI with and without contrast of her brain, C-spine, T-spine, and L-spine. Demyelination process was found. Telemetry neuro was initially consulted. Spinal tap was done per recommendations and patient was initiated on 1 g daily of IV Solu-Medrol. Patient was then seen by Dr. Mcclellan from neurology. He has recommended to continue IV Solu-Medrol 1 g daily for total of 5 days. Multiple sclerosis labs and spinal fluid are still currently pending. Plan Continue current treatment. Neurological workup still in process. Continue physical therapy. Plan discussed with: Patient, Other DAMEON JEFFERSON NP Apr 23, 2024 09:16
[2024-04-23 10:07] LABS: Serum Albumin 4.3 g/dL (4.0-5.0)
--- NOTE | 2024-04-23 10:24 | DVH ---
Procedure: CT CHEST WITHOUT CONTRAST Reason for study/Clinical History: 18 years old, Female; Abnormal chest x-ray, to rule out sarcoidos is. Comparison Study: None available at time of dictation. Exam Date: 04/23/2024 09:35 AM TECHNIQUE: Multidetector CT of the chest was performed from the lung apices to the upper abdomen with out the use of intravenous contract. Axial, coronal and sagittal multiplanar reformats were performed . Radiation dose Information: CT Dose: CTDI volume is 8.65 mGy. Dose-length product is 307.5 mGy*cm The dose indicators for CT are the volume computed Tomography (CT) dose Index (CTDIvol) and the dose Length product (DLP), and are measured in units of mGy and mGy-cm, respectively. These indicators are not patient dose, but values generated from the CT scanner acquisition factors. The report includes radiation exposure data for exposures received during this examination. FINDINGS: Lower neck: Normal thyroid. Lungs: No focal consolidation, pleural effusion or pneumothorax. Heart/Vascular Structures: Normal heart size. No pericardial effusion. Lymph Nodes: No adenopathy Pleura: No pleural effusion or significant pneumothorax. Musculoskeletal: No acute osseous abnormality. Soft tissues: Normal. Upper abdomen: Limited portions of the upper abdomen are unremarkable. IMPRESSION: 1. No acute intrathoracic abnormality. No evidence of sarcoidosis. No right lower lobe consolidation. Radiation optimization: All CT scans at this facility use at least one of these dose optimization marli hniques: Automated exposure control mA and/or kV adjustment per patient size (includes targeted exams where dose is matched to clinical indication) or iterative reconstruction. HS:Y
[2024-04-23] MEDS: CHOLECALCIFEROL (VITD3) 1,000UNIT=25mCg TAB PO SCH (10:56)
[2024-04-23 12:06] LABS: Anti-Nuclear Antibody Direct Positive (Negative)
[2024-04-23 15:06] LABS: Anti-dsDNA Antibody <1 IU/mL (0-9); RNP Antibody <0.2 AI (0.0-0.9); Sjogren's Anti-SS-A Antibody <0.2 AI (0.0-0.9); Sjogren's Anti-SS-B Antibody 2.5 AI (0.0-0.9); Smith Antibody <0.2 AI (0.0-0.9)
[2024-04-23] MEDS: HYDROcodone-ACET 5/325MG TAB PO PRN (21:38)
[2024-04-24] VITALS (9 sets, daily range): BP systolic 109–129; BP diastolic 49–82; PULSE 68–98; RESP 12–18; TEMP 97.2–98.7; O2SAT 93–99
[2024-04-24 06:06] LABS: Immunoglobulin G, Serum 969 mg/dL (719-1475); Rheumatoid Arthritis Factor <10.0 IU/mL (<14.0)
[2024-04-24 06:06] LABS: HSV-1 DNA CSF Negative (Negative)
--- NOTE | 2024-04-24 08:34 | DVHPN2 ---
Progress Note - Dictate Date Seen: Apr 24, 2024 Medical Necessity Reason Pt with a Central, PICC or Fol: No Subjective MsRee Yusuf is a 18 years old right-handed female with a history of a overweight, crossed eye/strabismus, the patient was admitted to the [facility] on 04/19/2024 with a chief company of dizziness I have seen and examined the patient, discussed with her nurse, she was doing fine today, she was not depressed today, I have discussed with her, her mother about my impression, and plan CHAVO, 04/22/2024: Positive AA-B/LA antibody 04/22/24: 2.5 (0-0.9) CSF, 04/22/2024: WBC: 0, protein: 37.6, glucose: 65 Urinalysis, 04/02/2024: Unremarkable UDS, 04/21/2024: Cannabinoids HIV one and two antibody, 04/22/2024: Negative CBC, 04/20/2024: Unremarkable ESR, 04/20/2024: 7 CMP, 04/20/2024: Unremarkable TSH, 04/19/2024: 1.2 Chest x-ray, 04/23/2024: Right lower lobe airspace disease CT chest, 04/23/2024: No acute intrathoracic abnormality. No evidence of sarcoidosis. No right lower lobe consolidation MRI [facility] brain, 04/19/2024: There are innumerable supratentorial, infratentorial and brainstem T2/FLAIR hyperintense foci with few demonstrating complete enhancement and multiple demonstrating incomplete peripheral enhancement suggestive of active demyelinating process. Recommend clinical correlation MRI [facility] C-spine, 04/19/2024: 1. Multilevel T2/FLAIR hyperintense lesions in the spinal cord. Suspicious for demyelinating disease. 2. Congenital spinal canal stenosis as detailed above. 3. Limited postcontrast images due to motion artifact MRI T-spine, 04/19/2024: Extensive short segmental T2/FLAIR hyperintense foci involving the thoracic cord most consistent with demyelinating process. No significant spinal canal or neural foramina stenosis MRI L-spine [facility], 04/19/2024: No significant spinal canal or neural foramina stenosis vital signs Vital Sign Date Time Temp Pulse Resp B/P (MAP) Pulse Ox O2 Delivery O2 Flow Rate FiO2 04/24/24 05:00 97.8 73 18 109/49 (69) 98 97.8 04/23/24 20:00 Room Air* 0 21 Total Intake and Output 04/23/24 04/23/24 04/24/24 15:00 23:00 07:00 Intake Total 250 ml 1220 ml 240 ml Output Total 650 ml Balance 250 ml 570 ml 240 ml medications Current Medications Medications Dose Ordered Sig/Dandre Route Start Time Stop Time Status Last Admin Dose Admin Sodium Chloride 1,000 ml @ 60 mls/hr [id number] IV 04/19/24 15:15 04/23/24 15:04 60 MLS/HR Acetaminophen/ Hydrocodone Bitart 1 tab Q4HP PRN PO 04/19/24 15:15 04/23/24 21:38 1 TAB Ondansetron HCl 4 mg Q4HP PRN IV 04/19/24 15:15 Docusate Sodium 100 mg BIDPRN PRN PO 04/19/24 15:15 04/21/24 10:42 100 MG Acetaminophen 650 mg Q6HP PRN PO 04/19/24 15:15 04/22/24 11:28 650 MG Methylprednisolone Sodium Succinate 1000 mg/Sodium Chloride 250 ml @ 300 mls/hr DAILY IV 04/22/24 13:15 04/27/24 13:14 04/23/24 10:42 300 MLS/HR Cholecalciferol 1,000 unit DAILY PO 04/23/24 10:00 04/23/24 10:56 1,000 UNIT Calcium Carbonate 500 mg BID PO 04/22/24 22:00 04/23/24 21:38 500 MG Pantoprazole Sodium 40 mg DAILY@0600 PO 04/22/24 13:30 04/24/24 05:58 40 MG objective General: the patient is well developed and nourished. No acute distress. MENTAL STATUS: Subjective SPEECH, LANGUAGE, HIGHER CORTICAL FUNCTION: no aphasia, mild slurred speech CRANIAL NERVES: Pupils are equal, round and reactive. EOMs full and conjugate except for right CN weakness. No nystagmus. Facial sensation intact in all three divisions bilaterally. Mandibular strength intact. Facial muscles symmetrical and strength intact. SENSATION: Sensation to touch and pinprick is diminished in the right lower extremity below the groin area MOTOR: Normal tone in the upper and lower extremity. Normal muscle bulk. No fasciculations. No abnormal movements or posturing. Muscle strength of the major groups in the right extremities is 5/5. Muscle strength of the major groups in the lower extremities close to 5/5 with left arm and leg drift REFLEXES: Deep tendon reflexes normal and symmetrical. No pathological reflexes. CEREBELLAR/COORDINATION: Finger to nose is normal bilaterally. GAIT/STATION: deferred laboratory and microbiology Laboratory Tests 04/20/24 05:47 Test 04/20/24 05:47 Range/Units Serum Glucose 100 74-106 mg/dL Problem List Progress slurred speech, dizziness, gait disturbance, left-sided weakness, left lower extremity sensory loss, the patient was likely has multiple sclerosis ? Depression Strabismus Assessment/Plan Monitoring, including evidence of depression Supportive treatment Serum angiotensin-converting enzyme CSF angiotensin-converting enzyme Waiting for CSF profile Solu-Medrol 1000 mg IV q.d.x 5 days Consider Copaxone 40 mg subQ 3 times weekly Physical therapy Up to chair Follow with me on discharge [facility] specialist evaluation This medical document was created using an electronic medical record system with [employer] dictation system. Although this document has been carefully reviewed, there may still be some phonetic and typographical errors. These areas are purely typographical due to imperfections of the software programs, and do not reflect any compromise in the patient's medical care Prognosis poor Dietary Evaluation Review Comments: Monitor PO intake to meet 75% of her needs Expected Outcomes/Goals: Gradual weight loss Plan discussed with: Patient, Other CARMEN RANDOLPH MD Apr 24, 2024 08:34
--- NOTE | 2024-04-24 09:32 | DVHPN2 ---
Progress Note - Dictate Date Seen: Apr 24, 2024 Medical Necessity Reason Pt with a Central, PICC or Fol: No vital signs Vital Sign Date Time Temp Pulse Resp B/P (MAP) Pulse Ox O2 Delivery O2 Flow Rate FiO2 04/24/24 08:00 92 16 97 Room Air* 0 21 04/24/24 05:00 97.8 109/49 (69) 97.8 Total Intake and Output 04/23/24 04/23/24 04/24/24 15:00 23:00 07:00 Intake Total 250 ml 1220 ml 240 ml Output Total 650 ml Balance 250 ml 570 ml 240 ml medications Current Medications Medications Dose Ordered Sig/Dandre Route Start Time Stop Time Status Last Admin Dose Admin Sodium Chloride 1,000 ml @ 60 mls/hr [id number] IV 04/19/24 15:15 04/23/24 15:04 60 MLS/HR Acetaminophen/ Hydrocodone Bitart 1 tab Q4HP PRN PO 04/19/24 15:15 04/23/24 21:38 1 TAB Ondansetron HCl 4 mg Q4HP PRN IV 04/19/24 15:15 Docusate Sodium 100 mg BIDPRN PRN PO 04/19/24 15:15 04/21/24 10:42 100 MG Acetaminophen 650 mg Q6HP PRN PO 04/19/24 15:15 04/22/24 11:28 650 MG Methylprednisolone Sodium Succinate 1000 mg/Sodium Chloride 250 ml @ 300 mls/hr DAILY IV 04/22/24 13:15 04/27/24 13:14 04/23/24 10:42 300 MLS/HR Cholecalciferol 1,000 unit DAILY PO 04/23/24 10:00 04/23/24 10:56 1,000 UNIT Calcium Carbonate 500 mg BID PO 04/22/24 22:00 04/23/24 21:38 500 MG Pantoprazole Sodium 40 mg DAILY@0600 PO 04/22/24 13:30 04/24/24 05:58 40 MG objective General Appearance: alert, no distress HEENT: EOMI, PERRLA, normal external inspect of ears, no icterus, no nasal drainage Neck: no carotid bruit, no jugular venous distention (JVD), no lymphadenopathy Chest: normal thorax Respiratory: clear to auscultation, normal air movement Cardiovascular: regular rate and rhythm, no diastolic murmur, no jugular venous distention (JVD), no rub, no systolic murmur Abdominal: soft, no hepatomegaly, no mass, no splenomegaly, no tenderness Genitourinary: grossly normal external Musculoskeletal: no joint tenderness, no swelling Extremities: normal pulses, no calf tenderness, no clubbing, no cyanosis, no edema Skin: no bruising, no jaundice, no rash Neurological: alert, No focal deficit laboratory and microbiology Laboratory Tests 04/20/24 05:47 Test 04/20/24 05:47 Range/Units Serum Glucose 100 74-106 mg/dL Problem List 1. Recurrent Falls Medication, monitoring 2. demyelination in brain Neurology consult, Spinal tap, MRI C/T/L Spine 3. Left Sided-weakness Medication, Monitoring 4. Obesity Diet Education Assessment/Plan Subjective Patient is awake and alert Objective Patient most likely has MS per neurology. Pending CSF pathology reports. MRI of brain, C-spine, T-spine, and L-spine show demyelinating disease. Patient has been started on methylprednisone 1000 mg IV daily for total of 5 days. Plan Continue current treatment. Patient will need 5 days of IV methylprednisolone. DME request for walker. Neurology recommendations appreciated. Dietary Evaluation Review Comments: Monitor PO intake to meet 75% of her needs Expected Outcomes/Goals: Gradual weight loss Plan discussed with: Patient, Other DAMEON JEFFERSON NP Apr 24, 2024 09:32
[2024-04-24 13:07] LABS: Antimyeloperoxidase (MPO) Ab <0.2 units (0.0-0.9); Antiproteinase 3 (PR-3) Ab <0.2 units (0.0-0.9)
--- NOTE | 2024-04-24 20:13 | DVHINCON2 ---
Date of service: Apr 24, 2024 Referring Physician hospitalist Reason for Consultation urinary retention History of Present Illness History Source: Patient, Spouse/Significant Other, RN Notes, MD Notes Exam Limitations: No limitations HPI 18 yo pleasant female c/o trouble walking and multiple falls. FMH of brain tumor and MS. She was experiencing urinary retention and a taylor was placed. She is tolerating taylor at this time. She is not ambulating safely at this time. Neurology workup ongoing. Home Meds No Active Prescriptions or Reported Meds Past Medical History Patient Family History: FH: brain tumor G8 MOTHER FH: multiple sclerosis grandmother H&P Exam Vital Signs Vital Signs Date Time Temp Pulse Resp B/P (MAP) Pulse Ox O2 Delivery O2 Flow Rate FiO2 04/24/24 16:43 98.2 98 16 121/71 (88) 98 98.2 04/24/24 08:00 Room Air* 0 21 Labs/Xrays Labs Test 04/23/24 11:17 04/22/24 17:05 04/22/24 14:40 04/22/24 08:30 Range/Units HIV (1&2) Antibody Negative Negative Ceruloplasmin 26.0 19.0-39.0 mg/dL Rheumatoid Factor <10.0 <14.0 IU/mL Anti-Nuclear Antibody Screen Positive H Negative Anti-Nuclear Antibody Comment Comment . Anti-Proteinase 3 (c-ANCA) <0.2 0.0-0.9 units Myeloperoxidase Antibody <0.2 0.0-0.9 units SS-A/Ro Antibody <0.2 0.0-0.9 AI SS-B/La Antibody 2.5 H 0.0-0.9 AI Sm Antibody <0.2 0.0-0.9 AI D[employer]ING SERVICE INSPECTOR Antibody <0.2 0.0-0.9 AI Anti-Double Strand DNA Antibody <1 0-9 IU/mL CSF Tube Number Tube 3 CSF Appearance Clear CSF WBC 0 0-5 CUMM CSF RBC 53 H 0-5 CUMM CSF Protein (Tube 2) 73.6 H 15-45 mg/dL CSF Mononuclear Cells % CSF Polymorphonuclear Cells % CSF Glucose 65 40-70 mg/dL Test 04/21/24 09:54 04/21/24 05:05 04/20/24 05:47 04/19/24 12:35 Range/Units Prothrombin Time 10.7 9.3-11.8 sec Prothrombin Time INR 1.01 0.9-1.15 Activated Partial Thromboplast Time 22.7 L 24.5-34.5 SEC Urine Opiates Screen Neg NEGATIVE Urine Fentanyl Screen Neg NEGATIVE Urine Barbiturates Screen Neg NEGATIVE Urine Phencyclidine Screen Neg NEGATIVE Urine Amphetamines Screen Neg NEGATIVE Urine Benzodiazepines Screen Neg NEGATIVE Urine Cocaine Screen Neg NEGATIVE Urine Cannabinoids Screen Pos NEGATIVE White Blood Count 6.7 # 4.4-10.8 10^3/uL Red Blood Count 4.90 4.0-5.20 10^6/uL Hemoglobin 14.0 12.2-16.2 g/dL Hematocrit 41.6 36.0-46.0 % Mean Corpuscular Volume 84.9 80.0-100.0 fL Mean Corpuscular Hemoglobin 28.6 28.0-32.0 pg Mean Corpuscular Hemoglobin Concent 33.7 32.0-36.0 g/dL Red Cell Distribution Width 15.8 H 11.8-14.3 % Platelet Count 345 140-450 10^3/uL Mean Platelet Volume 6.8 L 6.9-10.8 fL Neutrophils (%) (Auto) 61.7 37.0-80.0 % Lymphocytes (%) (Auto) 24.4 10.0-50.0 % Monocytes (%) (Auto) 8.1 0.0-12.0 % Eosinophils (%) (Auto) 5.1 0.0-7.0 % Basophils (%) (Auto) 0.7 0.0-2.0 % Neutrophils # (Auto) 4.1 1.6-8.6 10 ^3/uL Lymphocytes # (Auto) 1.6 0.4-5.4 10 ^3/uL Monocytes # (Auto) 0.5 0-1.3 10 ^3/uL Eosinophils # (Auto) 0.3 0-0.8 10 ^3/uL Basophils # (Auto) 0 0-0.2 10 ^3/uL Nucleated Red Blood Cells 0.0 % Erythrocyte Sedimentation Rate 7 0-20 mm/hr Sodium Level 140 136-145 mmol/L Potassium Level 4.1 3.5-5.1 mmol/L Chloride Level 108 H 98-107 mmol/L Carbon Dioxide Level 23 20-31 mmol/L Anion Gap 9 5-15 Blood Urea Nitrogen 9 9-23 mg/dL Creatinine 0.61 0.550-1.02 mg/dL Glomerular Filtration Rate Calc 132 >90 mL/min BUN/Creatinine Ratio 14.8 10.0-20.0 Serum Glucose 100 74-106 mg/dL Hemoglobin A1c 5.4 <5.7 % A1C Calcium Level 9.8 8.7-10.4 mg/dL Total Bilirubin 0.5 0.2-1.0 mg/dL Aspartate Amino Transferase (AST) < 8 L 13-40 U/L Alanine Aminotransferase (ALT) 10 7-40 U/L Alkaline Phosphatase 74 46-116 U/L Total Protein 6.8 5.7-8.2 g/dL Albumin 4.2 3.2-4.8 g/dL Thyroid Stimulating Hormone (TSH) 1.20 0.55-4.78 uIU/mL Urine Color Light-yellow Yellow Urine Clarity Clear Clear Urine pH 6.5 5.0-9.0 Urine Specific [place] 1.017 1.001-1.035 Urine Protein Negative Negative Urine Ketones Negative Negative Urine Blood 2+ H Negative /uL Urine Nitrite Negative Negative Urine Bilirubin Negative Negative Urine Urobilinogen Normal Negative mg/dL Urine Leukocyte Esterase Negative Negative /uL Urine RBC <1 0 - 4 /hpf Urine WBC 1 0 - 5 /hpf Urine Squamous Epithelial Cells Few <5 /hpf Urine Bacteria None seen None Seen /hpf Urine Mucus Few None Seen Urine Glucose Normal Normal mg/dL Test 04/19/24 11:46 Range/Units Beta HCG, Quantitative 1.5 1.5-4.2 mIU/mL Microbiology Date/Time Source Procedure Growth Status 04/22/24 08:30 Cerebral Spinal Fluid Gram Stain - Final Resulted 04/22/24 08:30 Cerebral Spinal Fluid CSF Culture & Gram Stain (Tube 2) M - Preliminary Resulted Assessment/Plan Problem List: (1) Falls (2) Urinary retention (3) Slurred speech (4) Left-sided weakness (5) Demyelinating changes in brain Plan taylor for now - begin bladder training avoid constipation outpt cystoscopy and urodynamics may need CIC management ongoing Plan discussed with: Patient, Spouse, Other SHAUN CHAND NP Apr 24, 2024 20:13
[2024-04-24 21:06] LABS: Cytoplasmic (C-ANCA) <1:20 titer (Neg:<1:20); Perinuclear (P-ANCA) <1:20 titer (Neg:<1:20)
[2024-04-25] VITALS (7 sets, daily range): BP systolic 115–129; BP diastolic 60–83; PULSE 60–92; RESP 12–18; TEMP 97.1–98.5; O2SAT 95–99
[2024-04-25 12:07] LABS: Albumin, CSF 39 mg/dL (7-29); CSF IgG Index 0.9 (0.0-0.7); CSF/Serum Alb. Index 9 (0-8); IgG, Syn Rate,CSF 17.5 mg/day (-9.9 TO +3.3); IgG/Alb Ratio, CSF 0.21 (0.00-0.25)
[2024-04-25 12:07] LABS: Albumin, CSF 49 mg/dL (7-29); IgG, Quant, CSF 8.5 mg/dL (0.0-6.7)
[2024-04-25 15:07] LABS: HSV-2 DNA Negative (Negative)
--- NOTE | 2024-04-25 19:20 | DVHPN2 ---
Progress Note - Dictate Date Seen: Apr 25, 2024 Medical Necessity Reason Pt with a Central, PICC or Fol: No Subjective MsRee Yusuf is a 18 years old right-handed female with a history of a overweight, crossed eye/strabismus, the patient was admitted to the [facility] on 04/19/2024 with a chief company of dizziness I have seen and examined the patient, discussed with her nurse, she was doing fine today, she walked with walker on the floor. She was doing fine, no new complaints, I have spent time discussing with her about possible differential diagnosis, and the importance to see a specialist A request by her, I have printed out CS with the profile, MRI brain, C-spine, T- spine, lumbar spine reports, CT chest reports The case was discussed with her nurse CHAVO, 04/22/2024: Positive AA-B/LA antibody 04/22/24: 2.5 (0-0.9) CSF, 04/22/2024: WBC: 0, protein: 37.6, glucose: 65, IgG index, 0.9 (0-0.7). IgG synth Index: 17.5 (-9.9-3.3) Urinalysis, 04/02/2024: Unremarkable UDS, 04/21/2024: Cannabinoids HIV one and two antibody, 04/22/2024: Negative CBC, 04/20/2024: Unremarkable ESR, 04/20/2024: 7 CMP, 04/20/2024: Unremarkable TSH, 04/19/2024: 1.2 Chest x-ray, 04/23/2024: Right lower lobe airspace disease CT chest, 04/23/2024: No acute intrathoracic abnormality. No evidence of sarcoidosis. No right lower lobe consolidation MRI [facility] brain, 04/19/2024: There are innumerable supratentorial, infratentorial and brainstem T2/FLAIR hyperintense foci with few demonstrating complete enhancement and multiple demonstrating incomplete peripheral enhancement suggestive of active demyelinating process. Recommend clinical correlation MRI [facility] C-spine, 04/19/2024: 1. Multilevel T2/FLAIR hyperintense lesions in the spinal cord. Suspicious for demyelinating disease. 2. Congenital spinal canal stenosis as detailed above. 3. Limited postcontrast images due to motion artifact MRI T-spine, 04/19/2024: Extensive short segmental T2/FLAIR hyperintense foci involving the thoracic cord most consistent with demyelinating process. No significant spinal canal or neural foramina stenosis MRI L-spine wwo, 04/19/2024: No significant spinal canal or neural foramina stenosis vital signs Vital Sign Date Time Temp Pulse Resp B/P (MAP) Pulse Ox O2 Delivery O2 Flow Rate FiO2 04/25/24 17:26 97.7 92 12 115/60 (78) 95 97.7 04/25/24 07:55 Room Air* 0 21 Total Intake and Output 04/24/24 04/24/24 04/25/24 15:00 23:00 07:00 Intake Total 117 ml 410 ml 120 ml Balance 117 ml 410 ml 120 ml medications Current Medications Medications Dose Ordered Sig/Dandre Route Start Time Stop Time Status Last Admin Dose Admin Sodium Chloride 1,000 ml @ 60 mls/hr [id number] IV 04/19/24 15:15 04/24/24 12:11 60 MLS/HR Acetaminophen/ Hydrocodone Bitart 1 tab Q4HP PRN PO 04/19/24 15:15 04/24/24 22:04 1 TAB Ondansetron HCl 4 mg Q4HP PRN IV 04/19/24 15:15 Docusate Sodium 100 mg BIDPRN PRN PO 04/19/24 15:15 04/21/24 10:42 100 MG Acetaminophen 650 mg Q6HP PRN PO 04/19/24 15:15 04/22/24 11:28 650 MG Cholecalciferol 1,000 unit DAILY PO 04/23/24 10:00 04/25/24 10:57 1,000 UNIT Calcium Carbonate 500 mg BID PO 04/22/24 22:00 04/25/24 10:56 500 MG Pantoprazole Sodium 40 mg DAILY@0600 PO 04/22/24 13:30 04/25/24 05:19 40 MG Methylprednisolone Sodium Succinate 1000 mg/Dextrose 250 ml @ 300 mls/hr DAILY IV 04/26/24 10:00 04/27/24 13:14 objective General: the patient is well developed and nourished. No acute distress. MENTAL STATUS: Subjective SPEECH, LANGUAGE, HIGHER CORTICAL FUNCTION: no aphasia, mild slurred speech CRANIAL NERVES: Pupils are equal, round and reactive. EOMs full and conjugate except for right CN weakness. No nystagmus. Facial sensation intact in all three divisions bilaterally. Mandibular strength intact. Facial muscles symmetrical and strength intact. SENSATION: Sensation to touch and pinprick is diminished in the right lower extremity below the groin area MOTOR: Normal tone in the upper and lower extremity. Normal muscle bulk. No fasciculations. No abnormal movements or posturing. Muscle strength of the major groups in the right extremities is 5/5. Muscle strength of the major groups in the lower extremities close to 5/5 with left arm and leg drift REFLEXES: Deep tendon reflexes normal and symmetrical. No pathological reflexes. CEREBELLAR/COORDINATION: Finger to nose shows ataxia GAIT/STATION: deferred laboratory and microbiology Laboratory Tests 04/20/24 05:47 Test 04/20/24 05:47 Range/Units Serum Glucose 100 74-106 mg/dL Problem List Progress slurred speech, dizziness, gait disturbance, left-sided weakness, left lower extremity sensory loss, the patient was likely has multiple sclerosis ? Depression Strabismus Assessment/Plan Monitoring, including evidence of depression Supportive treatment Serum angiotensin-converting enzyme CSF angiotensin-converting enzyme Waiting for CSF profile Solu-Medrol 1000 mg IV q.d.x 5 days Consider Copaxone 40 mg subQ 3 times weekly Physical therapy Up to chair Follow with me on discharge [facility] MS specialist evaluation Patient can take Medrol Dosepak on discharge, she can use Tums for acid reflex at home This medical document was created using an electronic medical record system with Znode dictation system. Although this document has been carefully reviewed, there may still be some phonetic and typographical errors. These areas are purely typographical due to imperfections of the software programs, and do not reflect any compromise in the patient's medical care Prognosis poor Dietary Evaluation Review Comments: Monitor PO intake to meet 75% of her needs Expected Outcomes/Goals: Gradual weight loss Plan discussed with: Patient, Other Total Time (mins): 40 CARMEN RANDOLPH MD Apr 25, 2024 19:20
--- NOTE | 2024-04-25 20:57 | DVHPN2 ---
Progress Note Date Seen: Apr 25, 2024 Medical Necessity Reason Pt with a Central, PICC or Fol: No Subjective Review of Systems: HEENT:Normal, CVS:Normal, RESPIRATORY:Normal, GI:Normal, NEURO:Normal Objective vital signs Vital Sign Date Time Temp Pulse Resp B/P (MAP) Pulse Ox O2 Delivery O2 Flow Rate FiO2 04/25/24 17:26 97.7 92 12 115/60 (78) 95 97.7 04/25/24 07:55 Room Air* 0 21 Total Intake and Output 04/24/24 04/24/24 04/25/24 15:00 23:00 07:00 Intake Total 117 ml 410 ml 120 ml Balance 117 ml 410 ml 120 ml medications Current Medications Medications Dose Ordered Sig/Dandre Route Start Time Stop Time Status Last Admin Dose Admin Sodium Chloride 1,000 ml @ 60 mls/hr [id number] IV 04/19/24 15:15 04/24/24 12:11 60 MLS/HR Acetaminophen/ Hydrocodone Bitart 1 tab Q4HP PRN PO 04/19/24 15:15 04/24/24 22:04 1 TAB Ondansetron HCl 4 mg Q4HP PRN IV 04/19/24 15:15 Docusate Sodium 100 mg BIDPRN PRN PO 04/19/24 15:15 04/21/24 10:42 100 MG Acetaminophen 650 mg Q6HP PRN PO 04/19/24 15:15 04/22/24 11:28 650 MG Cholecalciferol 1,000 unit DAILY PO 04/23/24 10:00 04/25/24 10:57 1,000 UNIT Calcium Carbonate 500 mg BID PO 04/22/24 22:00 04/25/24 10:56 500 MG Pantoprazole Sodium 40 mg DAILY@0600 PO 04/22/24 13:30 04/25/24 05:19 40 MG Methylprednisolone Sodium Succinate 1000 mg/Dextrose 250 ml @ 300 mls/hr DAILY IV 04/26/24 10:00 04/27/24 13:14 Examination: GENERAL:Normal, LUNGS:Normal, CVS:Normal, ABDOMEN:Normal, SKIN:Normal, NEURO:Normal laboratory and microbiology Laboratory Tests 04/20/24 05:47 Test 04/20/24 05:47 Range/Units Serum Glucose 100 74-106 mg/dL Microbiology Date/Time Source Procedure Growth Status 04/22/24 08:30 Cerebral Spinal Fluid Gram Stain - Final Resulted 04/22/24 08:30 Cerebral Spinal Fluid CSF Culture & Gram Stain (Tube 2) M - Preliminary Resulted Labs and/or images reviewed: Labs reviewed by me, Image(s) reviewed by me Problem List/Assessment/Plan Problem List/Assessment/Plan 1. Recurrent Falls Medication, monitoring 2. demyelination in brain Neurology consult, Spinal tap, MRI C/T/L Spine 3. Left Sided-weakness Medication, Monitoring 4. Obesity Diet Education Assessment/Plan Subjective Patient is awake and alert Objective Patient most likely has MS per neurology. Pending CSF pathology reports. MRI of brain, C-spine, T-spine, and L-spine show demyelinating disease. Patient has been started on methylprednisone 1000 mg IV daily for total of 5 days. Plan Continue current treatment. Patient will need 5 days of IV methylprednisolone which will be completed on April 27. DME request for walker. Neurology recommendations appreciated. Plan discussed with: Patient My Orders My Orders Orders - MORGAN GU Procedure Category Date Status Time * Retail Loan [employer] CONS 04/25/24 Transmitted Consult 11:01 Dietary Evaluation Review Comments: Monitor PO intake to meet 75% of her needs Expected Outcomes/Goals: Gradual weight loss Date of Service: Apr 25, 2024 Billing Provider: LIU CASTILLO MD Common Visit Codes: [id number] INP/OBS CARE (MOD) MORGAN GU Apr 25, 2024 20:56
[2024-04-26 01:00] VITALS: BP 120/68; PULSE 82; RESP 18; TEMP 98.8; O2SAT 96
[2024-04-26 05:00] VITALS: BP 125/70; PULSE 78; RESP 18; TEMP 98.9; O2SAT 96
[2024-04-26 08:16] VITALS: PULSE 92; RESP 16; O2SAT 97
[2024-04-26 08:45] VITALS: BP 105/51; PULSE 76; RESP 12; TEMP 98.2; O2SAT 98
[2024-04-26] MEDS: METHYLPREDNISOLONE SOD SUCC IV SCH (09:52)
[2024-04-26] MEDS: D5W 5% IV SCH (09:52)
[2024-04-26 10:36] LABS: Basophils # (auto) 0 10 ^3/uL (0-0.2); Basophils % (auto) 0.1 % (0.0-2.0); Eosinophils # (auto) 0 10 ^3/uL (0-0.8); Hemoglobin 13.8 g/dL (12.2-16.2); Lymphocytes % (auto) 10.2 % (10.0-50.0); Mean Corpuscular Hemoglobin 29.3 pg (28.0-32.0); Mean Corpuscular Hgb Conc. 34.5 g/dL (32.0-36.0); Monocytes # (auto) 0.6 10 ^3/uL (0-1.3); Neutrophils # (auto) 8.6 10 ^3/uL (1.6-8.6); Neutrophils % (auto) 83.7 % (37.0-80.0); Platelet Count (auto) 411 10^3/uL (140-450); Red Cell Distribution Width 15.6 % (11.8-14.3); White Blood Cell 10.3 10^3/uL (4.4-10.8)
[2024-04-26 10:49] LABS: Chloride 105 mmol/L (98-107); Sodium 138 mmol/L (136-145)
[2024-04-26 10:50] LABS: Anion Gap 10 (5-15); Calcium 10.1 mg/dL (8.7-10.4); Carbon Dioxide 23 mmol/L (20-31)
[2024-04-26 10:55] LABS: BUN/Creatinine Ratio 23.4 (10.0-20.0); Blood Urea Nitrogen 15 mg/dL (9-23); Glucose 175 mg/dL (74-106); Potassium 3.3 mmol/L (3.5-5.1)
[2024-04-26] MEDS ORDERED: METH4PAK PO (11:02)
--- NOTE | 2024-04-26 11:03 | DVHDS2 ---
Discharge Summary Date of Admission Apr 19, 2024 at 15:06 Date of Discharge: Apr 26, 2024 Admitting Diagnosis RECURRENT FALLS RULE OUT MS Labs/Diagnostic Data: Laboratory Results Test 04/26/24 10:09 04/23/24 11:17 04/22/24 17:05 04/22/24 14:40 White Blood Count 10.3 10^3/uL (4.4-10.8) Red Blood Count 4.70 10^6/uL (4.0-5.20) Hemoglobin 13.8 g/dL (12.2-16.2) Hematocrit 40.0 % (36.0-46.0) Mean Corpuscular Volume 85.0 fL (80.0-100.0) Mean Corpuscular Hemoglobin 29.3 pg (28.0-32.0) Mean Corpuscular Hemoglobin Concent 34.5 g/dL (32.0-36.0) Red Cell Distribution Width 15.6 % (11.8-14.3) Platelet Count 411 10^3/uL (140-450) Mean Platelet Volume 7.2 fL (6.9-10.8) Neutrophils (%) (Auto) 83.7 % (37.0-80.0) Lymphocytes (%) (Auto) 10.2 % (10.0-50.0) Monocytes (%) (Auto) 6.0 % (0.0-12.0) Eosinophils (%) (Auto) 0.0 % (0.0-7.0) Basophils (%) (Auto) 0.1 % (0.0-2.0) Neutrophils # (Auto) 8.6 10 ^3/uL (1.6-8.6) Lymphocytes # (Auto) 1.0 10 ^3/uL (0.4-5.4) Monocytes # (Auto) 0.6 10 ^3/uL (0-1.3) Eosinophils # (Auto) 0 10 ^3/uL (0-0.8) Basophils # (Auto) 0 10 ^3/uL (0-0.2) Nucleated Red Blood Cells 0.0 % Sodium Level 138 mmol/L (136-145) Potassium Level 3.3 mmol/L (3.5-5.1) Chloride Level 105 mmol/L (98-107) Carbon Dioxide Level 23 mmol/L (20-31) Anion Gap 10 (5-15) Blood Urea Nitrogen 15 mg/dL (9-23) Creatinine 0.64 mg/dL (0.550-1.02) Glomerular Filtration Rate Calc 130 mL/min (>90) BUN/Creatinine Ratio 23.4 (10.0-20.0) Serum Glucose 175 mg/dL (74-106) Calcium Level 10.1 mg/dL (8.7-10.4) HIV (1&2) Antibody Negative (Negative) Ceruloplasmin 26.0 mg/dL (19.0-39.0) Rheumatoid Factor <10.0 IU/mL (<14.0) Anti-Nuclear Antibody Screen Positive (Negative) Anti-Nuclear Antibody Comment Comment (.) Cytoplasmic ANCA (c-ANCA) Antibody <1:20 titer (Neg:<1:20) Anti-Proteinase 3 (c-ANCA) <0.2 units (0.0-0.9) Atypical p-ANCA <1:20 titer (Neg:<1:20) Perinuclear ANCA (p-ANCA) Antibody <1:20 titer (Neg:<1:20) Myeloperoxidase Antibody <0.2 units (0.0-0.9) SS-A/Ro Antibody <0.2 AI (0.0-0.9) SS-B/La Antibody 2.5 AI (0.0-0.9) Sm Antibody <0.2 AI (0.0-0.9) CATTLE SORTER Antibody <0.2 AI (0.0-0.9) Anti-Double Strand DNA Antibody <1 IU/mL (0-9) Test 04/22/24 08:30 04/21/24 09:54 04/21/24 05:05 04/20/24 05:47 CSF Tube Number Tube 3 CSF Appearance Clear CSF WBC 0 CUMM (0-5) CSF RBC 53 CUMM (0-5) CSF Protein (Tube 2) 73.6 mg/dL (15-45) CSF Mononuclear Cells % CSF Polymorphonuclear Cells % CSF Glucose 65 mg/dL (40-70) Prothrombin Time 10.7 sec (9.3-11.8) Prothrombin Time INR 1.01 (0.9-1.15) Activated Partial Thromboplast Time 22.7 SEC (24.5-34.5) Urine Opiates Screen Neg (NEGATIVE) Urine Fentanyl Screen Neg (NEGATIVE) Urine Barbiturates Screen Neg (NEGATIVE) Urine Phencyclidine Screen Neg (NEGATIVE) Urine Amphetamines Screen Neg (NEGATIVE) Urine Benzodiazepines Screen Neg (NEGATIVE) Urine Cocaine Screen Neg (NEGATIVE) Urine Cannabinoids Screen Pos (NEGATIVE) Erythrocyte Sedimentation Rate 7 mm/hr (0-20) Hemoglobin A1c 5.4 % A1C (<5.7) Total Bilirubin 0.5 mg/dL (0.2-1.0) Aspartate Amino Transferase (AST) < 8 U/L (13-40) Alanine Aminotransferase (ALT) 10 U/L (7-40) Alkaline Phosphatase 74 U/L (46-116) Total Protein 6.8 g/dL (5.7-8.2) Albumin 4.2 g/dL (3.2-4.8) Thyroid Stimulating Hormone (TSH) 1.20 uIU/mL (0.55-4.78) Test 04/19/24 12:35 04/19/24 11:46 Urine Color Light-yellow (Yellow) Urine Clarity Clear (Clear) Urine pH 6.5 (5.0-9.0) Urine Specific [place] 1.017 (1.001-1.035) Urine Protein Negative (Negative) Urine Ketones Negative (Negative) Urine Blood 2+ /uL (Negative) Urine Nitrite Negative (Negative) Urine Bilirubin Negative (Negative) Urine Urobilinogen Normal mg/dL (Negative) Urine Leukocyte Esterase Negative /uL (Negative) Urine RBC <1 /hpf (0 - 4) Urine WBC 1 /hpf (0 - 5) Urine Squamous Epithelial Cells Few /hpf (<5) Urine Bacteria None seen /hpf (None Seen) Urine Mucus Few (None Seen) Urine Glucose Normal mg/dL (Normal) Beta HCG, Quantitative 1.5 mIU/mL (1.5-4.2) Other Laboratory Tests 04/26/24 10:09 Brief Hx & Hospital Course: Patient was admitted for recurrent falls. MRI of the brain C-spine T-spine and L-spine showed demyelination disease. Per neurologist patient likely has MS. During hospital stay patient received methylprednisone IV x5 days as requested by neurologist Dr. Guardado. Patient did receive spinal tap. Cerebral spinal fluid results are still pending however patient will follow up as outpatient with Dr. Guardado neurologist for results. Patient will be arranged with [facility] neurologist upon discharge. Patient will need to follow up with PCP within one week of discharge Condition at Discharge: Fair Final Diagnosis/Problems List 1. Recurrent Falls likley from MS 2. demyelination in brain likley from MS 3. Left Sided-weakness 4. Obesity Discharge Disposition: Home Discharge Instruct/Medications Diet: Cardiac 2g Na,low cholest Activity: No Restrictions, As Tolerated Follow Up/Referral: PCP within [address] guardado within 1 week Discharge Statement: "Patient was advised to return to the ER or call 911 if any headaches, dizziness, shortness of breath, chest pain, abdominal pain, bleeding, fevers, or worsening of medical condition. Patient was counseled about treatment plan, medications, possible side effects, patientverbalized understanding. All questions were answered to the best of my ability. This discharge took greater then 30 minutes in planning, reviewing documentation, counseling the patient, and discussing with other team members." DME: Diagnosis: new diagnosis MS ASSESSMENT ASSESSMENT Assessment 1. Recurrent Falls likley from MS 2. demyelination in brain likley from MS 3. Left Sided-weakness 4. Obesity MORGAN GU [facility] Apr 26, 2024 11:03
[2024-04-26 11:51] VITALS: TEMP 36.8
[2024-04-26] MEDS: POTASSIUM EFFERVESENT TAB 25 MEQ PO ONE (11:59)
[2024-04-26 13:00] VITALS: BP 108/63; PULSE 64; RESP 12; TEMP 97.9; O2SAT 96
== END 2024-04-26 16:20 | disposition home or self-care (01) | DRG 60 ==
LOC: ER 11:02 → OVERFLOW 15:06 → EAST 16:23
PROVIDERS: ADMIT Nurse Practitioner; ATTEND Nurse Practitioner
PROC: 009U3ZX Drainage of Spinal Canal, Percutaneous Approach, Diagnostic (ICD-10-PCS; principal; 2024-04-22)
DX: G35 Multiple sclerosis (principal); E66.9 Obesity, unspecified; R29.6 Repeated falls; R33.9 Retention of urine, unspecified; R47.81 Slurred speech; F32.A Depression, unspecified; Z68.29 Body mass index [BMI] 29.0-29.9, adult; Z82.0 Family history of epilepsy and other diseases of the nervous system
CPT/HCPCS: 10005; 36415; 70450; 70553; 71045; 71250; 72125; 72128; 72131; 72142; 72146; 72158; 76775; 77012; 80048; 80053; 80307; 81001; 82042; 82390; 82784; 82945; 83036; 83520; 84157; 84443; 84702; 85025; 85610; 85652; 85730; 86038; 86256; 86431; 86592; 86703; 87070; 87205; 87529; 89051; 93005; 97110; 97116; 97163; 97530; 99291; G0378; J2003; J7060

== ENCOUNTER 2024-08-22 14:40 | Emergency (ER) | payer MEDICAID, OTHER ==
[~2024-08-22] VITALS: Ht 165.1 cm; Wt 73.0 kg
[~2024-08-22 14:40] MED LIST: METH4PAK PO
[2024-08-22 14:55] VITALS: BP 156/84; RESP 18; TEMP 98.7; O2SAT 97
--- NOTE | 2024-08-22 15:27 | ED.PDOC ---
HPI (NEURO) HPI Comments 18 year old female brought in by significant other presents to the ED with chief complaint of generalized weakness. Boyfriend reports that the patient had been diagnosed with MS when admitted to [facility] on 04/19/24. Boyfriend relays that the patient was given Methylprednisolone for the duration of her stay and she was supposed to follow up with Amaya Kohli Neurologist, however, insurance issues prevented them from doing so. [id number] was called and had reported that the patient has a follow up with the specialist in September and was advised by her PCP Dr. Jewell to return to the ED if she has worsening symptoms for treatment. [id number] notes that the patient has been unable to feed herself now or walk at all due to the weakness to her whole body. Boyfriend dnies any further concerns at this time, only wanting patient to be treated for her condition. Chief Complaint: General Weakness Time Seen by MD: 15:21 Primary Care Provider: ANNA Reviewed Notes: Nurses Notes, Medications, Allergies Information Source: Patient, Friend, Significant Other Mode of Arrival: Wheelchair Severity: Severe Dizziness/Weakness Severity: Unable to do activities Headache Severity: None Timing: Months Duration: Since onset Prehospital treatment: None Weakness Location: Generalized Onset: At rest Circumstances: Spontaneous, Other (MS) Symptoms: Weakness, Difficulty talking, Difficulty walking History of: Other (Per patient, history of MS) Associated Signs and Symptoms: Weakness Past Medical History PAST MEDICAL HISTORY: Denies Past Medical History (Other): MS Surgical History: Denies all surgeries TOBACCO SIZER History: No Pertinent TOBACCO SIZER History Family History Family History: Reviewed,noncontributory to illness Family History (Other): Family Hx of MS and Brain Tumor Social History Smoker: Non-Smoker Alcohol: Denies ETOH Use Drugs: Marijuana Lives In: Home Constitutional: reports: fatigue, malaise, weakness; denies: chills, diaphoresis, fever, sweats, others EENTM: denies: blurred vision, double vision, ear bleeding, ear discharge, ear drainage, ear pain, ear ringing, eye pain, eye redness, hearing loss, mouth pain, mouth swelling, nasal discharge, nose bleeding, nose congestion, nose pain, photophobia, tearing, throat pain, throat swelling, voice changes, others Respiratory: denies: cough, hemoptysis, orthopnea, SOB at rest, shortness of breath, SOB with excertion, stridor, wheezing, others Cardiovascular: denies: chest pain, dizzy spells, diaphoresis, Dyspnea on exertion, edema, irregular heart beat, left arm pain, lightheadedness, palpitations, PND, syncope, others Gastrointestinal: denies: abdomen distended, abdominal pain, blood streaked bowels, constipated, diarrhea, dysphagia, difficulty swallowing, hematemesis, melena, nausea, poor appetite, poor fluid intake, rectal bleeding, rectal pain, vomiting, others Genitourinary: denies: abnormal vagina bleeding, burning, dyspareunia, dysuria, flank pain, frequency, hematuria, incontinence, pain, , vagina discharge, urgency, others Neurological: reports: weakness, others (Unable to eat on her own); denies: dizziness, fainting, headache, left sided numbness, left sided weakness, numbness, paresthesia, pre-existing deficit, right sided numbness, right sided weakness, seizure, speech problems, tingling, tremors Musculoskeletal: denies: back pain, gout, joint pain, joint swelling, muscle pain, muscle stiffness, neck pain, others Integumetry: denies: bruises, change in color, change in hair/nails, dryness, laceration, lesions, lumps, rash, wounds, others Allergic/Immunocompromised: denies: Difficulty Healing, Frequent Infections, Hives, Itching, others Hematologic/Lymphatic: denies: anemia, blood clots, easy bleeding, easy bruising, swollen glands, others Endocrine: denies: excessive hunger, excessive sweating, excessive thirst, excessive urination, flushing, intolerance to cold, intolerance to heat, unexplained weight gain, unexplained weight loss, others Psychiatric: denies: anxiety, bipolar disorder, depression, hopeless, panic disorder, schizophrenia, sleepless, suicidal, others All Other Systems: Reviewed and Negative Physical Exam General Appearance: Moderate Distress (Moderate distress due to generalized weakness and MS related concerns.), Normal HEENT: Pharynx Normal, TMs Normal, Other (Patient displays right eye strabism us) Neck: Full Range of Motion, Non-Tender, Normal, Normal Inspection Respiratory: Chest Non-Tender, Lungs Clear, No Accessory Muscle Use, No Respiratory Distress, Normal Breath Sounds Cardiovascular: No Edema, No JVD, No Murmur, No Gallop, Normal Peripheral Pulses, Regular Rate/Rhythm Breast Exam: Deferred Gastrointestinal: No Organomegaly, Non Tender, No Pulsatile Mass, Normal Bowel Sounds, Soft Genitalia: Deferred Pelvic: Deferred Rectal: Deferred Extremities: Other (Patient displays global generalized weakness on all four extremities. Strength appears reduced. No signs of trauma.) Musculoskeletal : Apperance: Normal Neurologic: NOT DONE Cerebellar Function: NOT DONE Reflexes: NOT DONE Skin: Dry, Normal Color, Warm Lymphatic: No Adenopathy Was a procedure done? Was a procedure done?: No Differential Diagnosis (SZ) General Weakness: Other (MS) X-Ray, Labs, Meds, VS Vital Signs Date Time Temp Pulse Resp B/P (MAP) Pulse Ox O2 Delivery O2 Flow Rate FiO2 08/22/24 15:45 Room Air* 0 21 08/22/24 14:56 139 08/22/24 14:55 98.7 138 18 156/84 (108) 97 98.7 Lab Test 08/22/24 15:47 08/22/24 14:55 Range/Units White Blood Count 8.4 4.4-10.8 10^3/uL Red Blood Count 5.40 H 4.0-5.20 10^6/uL Hemoglobin 15.1 12.2-16.2 g/dL Hematocrit 45.3 36.0-46.0 % Mean Corpuscular Volume 84.0 80.0-100.0 fL Mean Corpuscular Hemoglobin 28.0 28.0-32.0 pg Mean Corpuscular Hemoglobin Concent 33.4 32.0-36.0 g/dL Red Cell Distribution Width 14.9 H 11.8-14.3 % Platelet Count 352 140-450 10^3/uL Mean Platelet Volume 7.5 6.9-10.8 fL Neutrophils (%) (Auto) 72.9 37.0-80.0 % Lymphocytes (%) (Auto) 18.8 10.0-50.0 % Monocytes (%) (Auto) 6.9 0.0-12.0 % Eosinophils (%) (Auto) 0.8 0.0-7.0 % Basophils (%) (Auto) 0.6 0.0-2.0 % Neutrophils # (Auto) 6.2 1.6-8.6 10 ^3/uL Lymphocytes # (Auto) 1.6 0.4-5.4 10 ^3/uL Monocytes # (Auto) 0.6 0-1.3 10 ^3/uL Eosinophils # (Auto) 0.1 0-0.8 10 ^3/uL Basophils # (Auto) 0 0-0.2 10 ^3/uL Nucleated Red Blood Cells 0.0 % Sodium Level 138 136-145 mmol/L Potassium Level 3.6 3.5-5.1 mmol/L Chloride Level 106 98-107 mmol/L Carbon Dioxide Level 23 20-31 mmol/L Anion Gap 9 5-15 Blood Urea Nitrogen 7 L 9-23 mg/dL Creatinine 0.55 0.550-1.02 mg/dL Glomerular Filtration Rate Calc 135 >90 mL/min BUN/Creatinine Ratio 12.7 10.0-20.0 Serum Glucose 136 H 74-106 mg/dL Calcium Level 10.2 8.7-10.4 mg/dL Magnesium Level 2.1 1.6-2.6 mg/dL POC Glucose 140 H 70-106 mg/dl Current Medications Medications (Trade) Dose Ordered Sig/Dandre Route Start Time Stop Time Status Last Admin Methylprednisolone Sodium Succinate 1000 mg/Sodium Chloride 250 ml @ 300 mls/hr ONCE ONCE IV 08/22/24 15:30 08/22/24 16:19 DC 08/22/24 16:21 X-Ray, Labs, Meds, VS Comment All studies performed the ED were evaluated by me personally. Serum evaluation was unremarkable for any systemic concerns. Patient will be admitted for IV methylprednisolone treatment as well as continued neurological evaluation. Time of 1ST Reevaluation: 17:02 Reevaluation 1ST: Unchanged Consultation: PCP, Neurology Patient Education/Counseling: Diagnosis, Treatment Family Education/Counseling: Diagnosis, Treatment Departure 1 Departure Time of Disposition: 17:03 Impression: Primary Impression: Multiple sclerosis exacerbation Disposition: ADMITTED INPATIENT Condition: Stable Discharged With: Self, Friend Critical Care Note Critical Care Time?: No Stability Stability form required: No Heart Score Heart Score: Heart Score Response (Comments) Value History N/A 0 EKG N/A 0 Age N/A 0 Risk Factors N/A 0 Troponin N/A 0 Total 0 I personally scribed for KADI ROJAS PAC ([email or web address]) on 08/22/24 at 15:27. Electronically submitted by Nik Saldana ([email or web address]). KADI ROJAS PAC Aug 22, 2024 15:27
--- NOTE | 2024-08-22 15:56 | DVH ---
CHEST RADIOGRAPH Indication: Shortness of breath Technique: Single frontal view of the chest was obtained Comparison: XY CHEST XRAY 1 VIEW on DOS: 04/23/24 FINDINGS: Lines and Tubes: None Lungs: No focal consolidation. Pleura: No effusion. No pneumothorax. Cardiomediastinal contours: Unremarkable Bones: No acute osseous abnormality. Subacute appearing chronic fracture deformity of right posterola teral 7th and 8th ribs. IMPRESSION: No acute cardiopulmonary disease.
[2024-08-22] MEDS: methylPREDNISolone SOD SUCC 1,000 MG in SODIUM CHL 0.9% 250 ML IV ONE (16:21)
[2024-08-22 16:23] LABS: Chloride 106 mmol/L (98-107); Potassium 3.6 mmol/L (3.5-5.1); Sodium 138 mmol/L (136-145)
[2024-08-22 16:24] LABS: Anion Gap 9 (5-15); Carbon Dioxide 23 mmol/L (20-31)
[2024-08-22 16:25] LABS: Calcium 10.2 mg/dL (8.7-10.4)
[2024-08-22 16:27] LABS: Basophils # (auto) 0 10 ^3/uL (0-0.2); Basophils % (auto) 0.6 % (0.0-2.0); Eosinophils # (auto) 0.1 10 ^3/uL (0-0.8); Eosinophils % (auto) 0.8 % (0.0-7.0); Hematocrit 45.3 % (36.0-46.0); Hemoglobin 15.1 g/dL (12.2-16.2); Lymphocytes # (auto) 1.6 10 ^3/uL (0.4-5.4); Lymphocytes % (auto) 18.8 % (10.0-50.0); Mean Corpuscular Hgb Conc. 33.4 g/dL (32.0-36.0); Monocytes # (auto) 0.6 10 ^3/uL (0-1.3); Monocytes % (auto) 6.9 % (0.0-12.0); Neutrophils # (auto) 6.2 10 ^3/uL (1.6-8.6); Neutrophils % (auto) 72.9 % (37.0-80.0); Platelet Count (auto) 352 10^3/uL (140-450); Red Cell Distribution Width 14.9 % (11.8-14.3); White Blood Cell 8.4 10^3/uL (4.4-10.8)
[2024-08-22 16:29] LABS: BUN/Creatinine Ratio 12.7 (10.0-20.0)
[2024-08-22 16:30] LABS: Magnesium 2.1 mg/dL (1.6-2.6)
[2024-08-22 16:35] LABS: Blood Urea Nitrogen 7 mg/dL (9-23); Glucose 136 mg/dL (74-106)
[2024-08-22 17:28] VITALS: PULSE 107
--- NOTE | 2024-08-22 17:29 | ECG ---
[facility] Test Date: 2024-08-22 Test Time: 17:28:23 Pat Name: OTTO MARTINEZ Department: ER Room: Gender: F Dock Boss: BRUCE : 2005 Requested By: KADI ROJAS Order Number: [id number] Reading MD: Boyd Coronel Measurements Intervals [place] Rate: 107 P: 75 AK: 120 QRS: 101 QRSD: 88 T: -23 QT: 318 QTc: 425 Interpretive Statements Sinus tachycardia Borderline right axis deviation Borderline repolarization abnormality Electronically Signed On 08-22-2024 18:52:32 PDT by Boyd Coronel Please click the below link to view image of tracing.
--- NOTE | 2024-08-25 12:03 | ECG ---
[facility] Test Date: 2024-08-22 Test Time: 14:56:37 Pat Name: OTTO MARTINEZ Department: ER Room: Gender: F Plumbing Engineer: CC : [id number] Requested By: KADI ROJAS Order Number: [id number] Reading MD: Measurements Intervals [place] Rate: 139 P: 82 ID: [id number] QRS: 103 QRSD: 88 T: -56 QT: 259 QTc: 394 Interpretive Statements Sinus tachycardia Consider right atrial enlargement Borderline right axis deviation Repol abnrm suggests ischemia, diffuse leads Please click the below link to view image of tracing.
== END 2024-08-22 22:40 | disposition left against medical advice (07) ==
LOC: ER 14:43
DX: G35 Multiple sclerosis (principal); F12.90 Cannabis use, unspecified, uncomplicated
CPT/HCPCS: 36415; 71045; 80048; 82947; 83735; 85025; 93005; 96365; 96366; 99285; J2930; J7050; 82962